=== PATIENT | female | born 1980 | race African-American/Black ===

== ENCOUNTER → 2018-02-27 | Outpatient (CLI) | payer MEDICARE, OTHER ==
[2018-02-27 12:24] LABS: ALT 14 U/L (9-52); AST 22 U/L (14-36)
== END | disposition home or self-care (01) ==
LOC: LABWHC1 10:17
PROVIDERS: ATTEND Family Medicine
DX: J02.9 Acute pharyngitis, unspecified (principal)
CPT/HCPCS: 36415; 84450; 84460; 87070

== ENCOUNTER → 2018-04-03 | Outpatient (CLI) | payer MEDICARE, OTHER ==
--- NOTE | 2018-04-04 07:31 | CT ---
EXAMINATION TYPE: CT brain wo/w con DATE OF EXAM: 04/03/2018 COMPARISON: None INDICATION: Migranes and memory loss DLP: 2250 mGycm, Automated exposure control for dose reduction was used. CONTRAST: None CT of the brain is performed utilizing 3 mm thick sections through the posterior fossa and 3 mm thick sections through the remaining calvarium. Study is performed within 24 hours of arrival to the hosp [facility]. No abnormal hyperdensity is present to suggest an acute intracranial hemorrhage. No mass lesion is evident. No acute infarcts are evident. Ventricles and sulci are appropriate for the patient age. Paranasal sinuses and mastoid air cells within the [id number] are clear. No abnormal enhancement. IMPRESSIONS: 1. Normal pre and postcontrast CT Brain
== END ==
LOC: RADCTMAIN 17:16
PROVIDERS: ATTEND Family Medicine
DX: R41.3 Other amnesia (principal)
CPT/HCPCS: 70470; Q9967

== ENCOUNTER 2018-11-19 01:30 | Emergency (ER) | payer MEDICARE, OTHER ==
[2018-11-19 02:16] VITALS: TEMP 98.4
[2018-11-19 03:43] LABS: Basophils # (A) 0.1 k/uL (0-0.2); Basophils % (A) 1 %; Eosinophils # (A) 0.4 k/uL (0-0.7); Eosinophils % (A) 5 %; HCT 40.2 % (34.0-46.0); HGB 13.2 gm/dL (11.4-16.0); Lymphocytes # (A) 3.6 k/uL (1.0-4.8); Lymphocytes % (A) 51 %; MCH 31.3 pg (25.0-35.0); MCHC 32.7 g/dL (31.0-37.0); MCV 95.6 fL (80.0-100.0); Mean Platelet Volume 7.6; Monocytes # (A) 0.3 k/uL (0-1.0); Monocytes % (A) 5 %; Neutrophils # (A) 2.5 k/uL (1.3-7.7); Neutrophils % (A) 36 %; Platelet Count 242 k/uL (150-450); RDW 13.9 % (11.5-15.5)
[2018-11-19] MEDS ORDERED: KETOROLAC 30 MG/ML 1 ML VIAL IVP STA (03:48)
--- NOTE | 2018-11-19 03:48 | ED ---
Chest Pain HPI - General Chief Complaint: Chest Pain Stated Complaint: sharp pain from chest to lt arm Time Seen by Provider: 11/19/18 03:08 Source: patient Mode of arrival: ambulatory Limitations: physical limitation - History of Present Illness Initial Comments: This patient is a 38-year-old woman who presents to be evaluated for pain along the upper back and into her left arm, the upper portion. The patient states that this really been going on for about 2 weeks. She believes that it may be related to either some lifting that she does at work or moving a piece of heavy furniture. The patient notes that the pain is worse with palpation of the area or with movement of the arm. She did not have any associated anginal symptoms, no diaphoresis, dyspnea, nausea or vomiting, palpitations or syncope. MD Complaint: chest pain Onset/Timin -: week(s) Pain Location: other Pain Radiation: LUE Severity: moderate Quality: tightness, aching Consistency: constant Improves With: nothing Worsens With: movement Treatments Prior to Arrival: none - Related Data Home Medications Medication Instructions Recorded Confirmed DULoxetine HCL [Cymbalta] 20 mg PO DAILY 11/19/18 11/19/18 PARoxetine [Paxil] 10 mg PO DAILY 11/19/18 11/19/18 busPIRone HCl [Buspar] 5 mg PO DAILY 11/19/18 11/19/18 risperiDONE [RisperDAL] 1 tab PO DAILY 11/19/18 11/19/18 Previous Rx's Medication Instructions Recorded Ibuprofen [Motrin] 600 mg PO Q8HR PRN #20 tab 11/19/18 Methocarbamol [Robaxin-750] 750 mg PO TID PRN #30 tablet 11/19/18 Allergies Allergy/AdvReac Type Severity Reaction Status Date / Time bupropion HCl AdvReac Confusion Verified 11/19/18 02:16 [From Wellbutrin] quetiapine fumarate AdvReac Confusion Verified 11/19/18 02:16 [From Seroquel] trazodone AdvReac Confusion Verified 11/19/18 02:16 Review of Systems ROS Statement: Those systems with pertinent positive or pertinent negative responses have been documented in the HPI. ROS Other: All systems not noted in ROS Statement are negative. Constitutional: Denies: fever, chills Respiratory: Denies: cough, dyspnea Cardiovascular: Reports: as per HPI, chest pain. Denies: palpitations, orthopnea, edema, syncope Gastrointestinal: Denies: abdominal pain, nausea, vomiting Musculoskeletal: Denies: back pain Skin: Denies: rash Neurological: Denies: headache, weakness, numbness EKG Findings - EKG Results: EKG: interpreted by JAIDEN VILLARREAL, sinus rhythm (Rate 66 bpm), normal axis, normal QRS, normal ST/T, no acute changes - ME, Pacemaker, Normal: Normal tracing: normal tracing Past Medical History Past Medical History: No Reported History History of Any Multi-Drug Resistant Organisms: None Reported Past Surgical History: Hysterectomy Past Psychological History: Bipolar, Depression Smoking Status: Current every day smoker Past Alcohol Use History: None Reported Past Drug Use History: None Reported General Exam Limitations: physical limitation General appearance: alert, in no apparent distress Head exam: Present: atraumatic, normocephalic Eye exam: Present: normal appearance. Absent: scleral icterus, conjunctival injection ENT exam: Present: normal oropharynx Neck exam: Present: normal inspection Respiratory exam: Present: normal lung sounds bilaterally. Absent: respiratory distress, wheezes, rales, rhonchi, stridor Cardiovascular Exam: Present: regular rate, normal rhythm, normal heart sounds. Absent: systolic murmur, diastolic murmur, rubs, gallop GI/Abdominal exam: Present: soft. Absent: distended, tenderness, guarding, rebound, rigid Extremities exam: Present: normal inspection, normal capillary refill. Absent: pedal edema, calf tenderness Back exam: Present: normal inspection, tenderness (There is tenderness and spasm of the left trapezius muscle), muscle spasm. Absent: CVA tenderness (R), CVA tenderness (L), paraspinal tenderness, vertebral tenderness Neurological exam: Present: alert. Absent: motor sensory deficit Skin exam: Present: warm, dry, intact, normal color. Absent: rash Course Vital Signs 11/19/18 02:09 Temperature 98.4 F Pulse Rate 76 Respiratory 18 Rate Blood Pressure 106/67 O2 Sat by Pulse 100 Oximetry Disposition Clinical Impression: Muscle spasm Disposition: HOME SELF-CARE Condition: Good Instructions (If sedation given, give patient instructions): Muscle Spasm (ED) Prescriptions: Ibuprofen [Motrin] 600 mg PO Q8HR PRN #20 tab PRN Reason: Pain Methocarbamol [Robaxin-750] 750 mg PO TID PRN #30 tablet PRN Reason: pain Is patient prescribed a controlled substance at d/c from ED?: No Referrals: Lexx Morrison MD [Primary Care Provider] - 1-2 days
[2018-11-19 03:51] LABS: ALT 11 U/L (9-52); AST 18 U/L (14-36); African American GFR (CKD) >90 (>60 ml/min/1.73 sqM); Albumin 4.1 g/dL (3.5-5.0); Alkaline Phosphatase 38 U/L (38-126); Anion Gap 9 mmol/L; Blood Urea Nitrogen 18 mg/dL (7-17); Calcium 9.5 mg/dL (8.4-10.2); Carbon Dioxide 22 mmol/L (22-30); Chloride 108 mmol/L (98-107); Glucose 94 mg/dL (74-99); Magnesium 1.9 mg/dL (1.6-2.3); Potassium 4.5 mmol/L (3.5-5.1); Sodium 139 mmol/L (137-145); Total Bilirubin 0.2 mg/dL (0.2-1.3); Total Protein 6.7 g/dL (6.3-8.2)
[2018-11-19 04:43] LABS: INR 0.9 (<1.2); Partial Thromboplastin Time 25.4 sec (22.0-30.0); Prothrombin Time 9.9 sec (9.0-12.0)
--- NOTE | 2018-11-19 05:10 | XR ---
EXAM: XR Chest, 2 Views CLINICAL HISTORY: ITS.REASON XR Reason: Chest Pain TECHNIQUE: Frontal and lateral views of the chest. COMPARISON: No relevant prior studies available. FINDINGS: Lungs: Unremarkable. No consolidation. Pleural space: Unremarkable. No pneumothorax. Heart: Unremarkable. No cardiomegaly. Mediastinum: Unremarkable. Bones/joints: Unremarkable. IMPRESSION: Normal chest x-rays.
[2018-11-19 05:48] VITALS: BP 106/58; PULSE 69; RESP 16
== END 2018-11-19 06:05 | disposition home or self-care (01) ==
LOC: EC 01:30
DX: M62.830 Muscle spasm of back (principal); M62.838 Other muscle spasm; F31.9 Bipolar disorder, unspecified; F17.200 Nicotine dependence, unspecified, uncomplicated; Z88.8 Allergy status to other drugs, medicaments and biological substances; Z79.899 Other long term (current) drug therapy
CPT/HCPCS: 36415; 93005; 80053; 83735; 84484; 85025; 85610; 85730; 71046; 99285; 96374; J1885

== ENCOUNTER 2019-03-13 02:25 | Observation (INO) | payer MEDICARE, OTHER ==
[2019-03-13] MEDS ORDERED: SODIUM CHLORIDE 0.9% 1,000 ML IV STA (03:05)
[2019-03-13] MEDS ORDERED: ONDANSETRON 4 MG/2 ML VIAL IVP STA ×2 (03:05→05:51)
[2019-03-13] MEDS ORDERED: MORPHINE SULFATE 4 MG/ML SYRINGE IV STA (03:05)
--- NOTE | 2019-03-13 03:07 | ED ---
Abdominal Pain HPI - General Chief Complaint: Abdominal Pain Stated Complaint: Vomiting, Dizziness Time Seen by Provider: 03/13/19 02:41 Source: patient, family Mode of arrival: ambulatory Limitations: no limitations - History of Present Illness Initial Comments: This patient is 39-year-old woman who complains of having abdominal pain, nausea and vomiting. She states that the symptoms came on a little after 6 PM. She was concerned that this may be related to some lasagna she had eaten. Coworker had prepared this. Patient denies change in bowel movements or urination. She describes the pain as an aching or burning. Is constant area she has not noted worsening or relieving factors. MD Complaint: abdominal pain Onset/Timin -: hour(s) Location: periumbilical Radiation: none Severity: severe Quality: cramping Consistency: constant Improves With: nothing Worsens With: nothing Associated Symptoms: nausea, vomiting - Related Data Home Medications Medication Instructions Recorded Confirmed DULoxetine HCL [Cymbalta] 20 mg PO DAILY 11/19/18 11/19/18 PARoxetine [Paxil] 10 mg PO DAILY 11/19/18 11/19/18 busPIRone HCl [Buspar] 5 mg PO DAILY 11/19/18 11/19/18 risperiDONE [RisperDAL] 1 tab PO DAILY 11/19/18 11/19/18 Previous Rx's Medication Instructions Recorded Ibuprofen [Motrin] 600 mg PO Q8HR PRN #20 tab 11/19/18 Methocarbamol [Robaxin-750] 750 mg PO TID PRN #30 tablet 11/19/18 Allergies Allergy/AdvReac Type Severity Reaction Status Date / Time bupropion HCl AdvReac Confusion Verified 03/13/19 02:37 [From Wellbutrin] quetiapine fumarate AdvReac Confusion Verified 03/13/19 02:37 [From Seroquel] trazodone AdvReac Confusion Verified 03/13/19 02:37 Review of Systems ROS Statement: Those systems with pertinent positive or pertinent negative responses have been documented in the HPI. ROS Other: All systems not noted in ROS Statement are negative. Constitutional: Reports: chills. Denies: fever Respiratory: Denies: cough, dyspnea Cardiovascular: Denies: chest pain, palpitations, edema Gastrointestinal: Reports: abdominal pain, nausea, vomiting. Denies: diarrhea, constipation, hematemesis, melena, hematochezia Genitourinary: Denies: dysuria, hematuria Musculoskeletal: Denies: back pain Skin: Denies: rash Neurological: Denies: headache, weakness, numbness Past Medical History Past Medical History: No Reported History History of Any Multi-Drug Resistant Organisms: None Reported Past Surgical History: Hysterectomy Past Psychological History: Bipolar, Depression Smoking Status: Current every day smoker Past Alcohol Use History: None Reported Past Drug Use History: None Reported General Exam Limitations: no limitations General appearance: alert, in no apparent distress Head exam: Present: atraumatic, normocephalic Eye exam: Present: normal appearance. Absent: scleral icterus, conjunctival injection ENT exam: Present: normal oropharynx Neck exam: Present: normal inspection Respiratory exam: Present: normal lung sounds bilaterally. Absent: respiratory distress, wheezes, rales, rhonchi, stridor Cardiovascular Exam: Present: regular rate, normal rhythm, normal heart sounds. Absent: systolic murmur, diastolic murmur, rubs, gallop GI/Abdominal exam: Present: soft, tenderness. Absent: distended, guarding, r ebound, rigid, mass Extremities exam: Present: normal inspection, normal capillary refill. Absent: pedal edema, calf tenderness Back exam: Present: normal inspection. Absent: CVA tenderness (R), CVA tenderness (L) Neurological exam: Present: alert Skin exam: Present: warm, dry, intact, normal color. Absent: rash Course Vital Signs 03/13/19 02:32 Temperature 97.8 F Pulse Rate 54 L Respiratory 20 Rate Blood Pressure 150/74 O2 Sat by Pulse 100 Oximetry Medical Decision Making - Lab Data Result diagrams: 03/13/19 03:20 03/13/19 03:20 Lab Results 03/13/19 03/13/19 Range/Units 03:20 03:20 WBC 10.6 (3.8-10.6) k/uL RBC 4.83 (3.80-5.40) m/uL Hgb 15.8 (11.4-16.0) gm/dL Hct 46.4 H (34.0-46.0) % MCV 96.1 (80.0-100.0) fL MCH 32.8 (25.0-35.0) pg MCHC 34.2 (31.0-37.0) g/dL RDW 12.8 (11.5-15.5) % Plt Count 254 (150-450) k/uL Neutrophils % 73 % Lymphocytes % 19 % Monocytes % 3 % Eosinophils % 3 % Basophils % 1 % Neutrophils # 7.7 (1.3-7.7) k/uL Lymphocytes # 2.0 (1.0-4.8) k/uL Monocytes # 0.4 (0-1.0) k/uL Eosinophils # 0.3 (0-0.7) k/uL Basophils # 0.1 (0-0.2) k/uL Sodium 139 (137-145) mmol/L Potassium 4.4 (3.5-5.1) mmol/L Chloride 100 (98-107) mmol/L Carbon Dioxide 23 (22-30) mmol/L Anion Gap 16 mmol/L BUN 12 (7-17) mg/dL Creatinine 0.79 (0.52-1.04) mg/dL Est GFR (CKD-EPI)AfAm >90 (>60 ml/min/1.73 sqM) Est GFR (CKD-EPI)NonAf >90 (>60 ml/min/1.73 sqM) Glucose 135 H (74-99) mg/dL Calcium 10.8 H (8.4-10.2) mg/dL Total Bilirubin 1.0 (0.2-1.3) mg/dL AST 32 (14-36) U/L ALT 17 (9-52) U/L Alkaline Phosphatase 66 (38-126) U/L Total Protein 9.6 H (6.3-8.2) g/dL Albumin 5.5 H (3.5-5.0) g/dL Amylase 161 H (30-110) U/L Lipase 71 (23-300) U/L Disposition Clinical Impression: Abdominal pain Disposition: ADMITTED IP TO THIS HOSP Condition: Fair Instructions (If sedation given, give patient instructions): Abdominal Pain (ED) Is patient prescribed a controlled substance at d/c from ED?: No Referrals: Lexx Morrison MD [Primary Care Provider] - 1-2 days
[2019-03-13 03:31] LABS: Basophils # (A) 0.1 k/uL (0-0.2); Basophils % (A) 1 %; Eosinophils # (A) 0.3 k/uL (0-0.7); Eosinophils % (A) 3 %; HCT 46.4 % (34.0-46.0); HGB 15.8 gm/dL (11.4-16.0); Lymphocytes % (A) 19 %; MCH 32.8 pg (25.0-35.0); MCHC 34.2 g/dL (31.0-37.0); MCV 96.1 fL (80.0-100.0); Mean Platelet Volume 7.5; Monocytes # (A) 0.4 k/uL (0-1.0); Monocytes % (A) 3 %; Neutrophils # (A) 7.7 k/uL (1.3-7.7); Neutrophils % (A) 73 %; Platelet Count 254 k/uL (150-450); RBC 4.83 m/uL (3.80-5.40); RDW 12.8 % (11.5-15.5); WBC 10.6 k/uL (3.8-10.6)
[2019-03-13 03:41] LABS: ALT 17 U/L (9-52); AST 32 U/L (14-36); African American GFR (CKD) >90 (>60 ml/min/1.73 sqM); Albumin 5.5 g/dL (3.5-5.0); Alkaline Phosphatase 66 U/L (38-126); Amylase 161 U/L (30-110); Anion Gap 16 mmol/L; Blood Urea Nitrogen 12 mg/dL (7-17); Calcium 10.8 mg/dL (8.4-10.2); Carbon Dioxide 23 mmol/L (22-30); Chloride 100 mmol/L (98-107); Glucose 135 mg/dL (74-99); Potassium 4.4 mmol/L (3.5-5.1); Sodium 139 mmol/L (137-145); Total Protein 9.6 g/dL (6.3-8.2)
--- NOTE | 2019-03-13 03:58 | CT ---
EXAMINATION TYPE: CT abdomen pelvis wo con DATE OF EXAM: 03/13/2019 COMPARISON: None HISTORY: vomiting CT DLP: 489.4 mGycm Automated exposure control for dose reduction was used. TECHNIQUE: Helical acquisition of images was performed from the lung bases through the pelvis. FINDINGS: Lung bases are clear. There is no pleural effusion. Heart size is normal. There is no pericardial eff usion. There is small hiatal hernia. Liver shows no focal defect. There are multiple calcified gallstones. Bile ducts are not dilated. Spl een is intact. There is no evidence of pancreatic mass. There is no adrenal mass. Kidneys have normal size. There is no hydronephrosis. There is no sign of r etroperitoneal adenopathy. Bladder distends smoothly. There is no inguinal hernia. Uterus is not seen . There is small amount of free fluid in the pelvis. There is no mesenteric edema. There is no sign of a bowel obstruction. There is no sign of thickened appendix. Appendix is partly spleen appears normal. IMPRESSION: THERE IS TINY AMOUNT OF FLUID IN THE PELVIS. NO EVIDENCE OF A BOWEL OBSTRUCTION. CHOLELITHIASIS.
[2019-03-13] MEDS ORDERED: HYDROmorphone 0.5 MG/0.5 ML SYRINGE IVP STA (05:51)
[2019-03-13] MEDS ORDERED: ONDANSETRON 4 MG/2 ML VIAL IVP PRN (06:57)
[2019-03-13] MEDS ORDERED: NALOXONE 0.4 MG/ML 1 ML VIAL IV PRN (06:57)
[2019-03-13] MEDS ORDERED: HYDROmorphone 1 MG/ML 1 ML SYRINGE IVP PRN (06:57)
[2019-03-13] MEDS: SODIUM CHLORIDE 0.9% 1,000 ML IV SCH ×3 (07:14→23:11)
[2019-03-13 08:04] LABS: Appearance,Urine Cloudy (Clear); Bilirubin,Urine Negative (Negative); Blood,Urine Trace (Negative); Color,Urine Yellow; Glucose,Urine (UA) Negative (Negative); Ketones,Urine 4+ (Negative); Leukocyte Esterase,Urine Small (Negative); Mucus,Urine Occasional /hpf; Nitrite,Urine Negative (Negative); Protein,Urine 1+ (Negative); RBC,Urine 6 /hpf (0-5); Specific Gravity,Urine 1.022 (1.001-1.035); Squamous Epithelial Cell,Urine 11 /hpf (0-4); Urobilinogen,Urine <2.0 mg/dL (<2.0); WBC,Urine 12 /hpf (0-5)
[2019-03-13] MEDS ORDERED: IV FLUID CONTINUATION 1,000 ML IV ONE (09:33)
[2019-03-13 10:14] VITALS: BMI 24.9
--- NOTE | 2019-03-13 10:19 | P.GSHP ---
History of Present Illness H&P Date: 03/13/19 Chief Complaint: Right upper quadrant pain, nausea This a 39-year-old female who presents to the emergency complaints of abdominal pain and nausea. Her obstruction is evidence of cholelithiasis. Patient is tender right quadrant. Past Medical History Past Medical History: No Reported History Additional Past Medical History / Comment(s): Large tonsills-difficulty swallowing at times, elevated heart rate, bilateral feet have fungus/ingrown toenails and cramps-pain with walking at times, R eye unclear vision since accidental nail glue went into that eye, UTI. History of Any Multi-Drug Resistant Organisms: None Reported Past Surgical History: Hernia Repair, Hysterectomy, Tubal Ligation Additional Past Surgical History / Comment(s): Ventral hernia repair, ectopic /laparoscopic surgery to laparotomy, L salpingostomy for drainage of a cyst. Past Anesthesia/Blood Transfusion Reactions: Motion Sickness Smoking Status: Light tobacco smoker - Past Family History Mother Family Medical History: Diabetes Mellitus, Pneumonia Additional Family Medical History / Comment(s): Mother of pneum onia/diabetes. Father Family Medical History: No Reported History Additional Family Medical History / Comment(s): Father is healthy Medications and Allergies Home Medications Medication Instructions Recorded Confirmed Type DULoxetine HCL [Cymbalta] 20 mg PO DAILY 11/19/18 03/13/19 History PARoxetine [Paxil] 10 mg PO DAILY 11/19/18 03/13/19 History busPIRone HCl [Buspar] 5 mg PO DAILY 11/19/18 03/13/19 History risperiDONE [RisperDAL] 0.25 mg PO DAILY 11/19/18 03/13/19 History Allergies Allergy/AdvReac Type Severity Reaction Status Date / Time bupropion HCl AdvReac Confusion Verified 03/13/19 08:26 [From Wellbutrin] quetiapine fumarate AdvReac Confusion Verified 03/13/19 08:26 [From Seroquel] trazodone AdvReac Confusion Verified 03/13/19 08:26 Surgical - Exam Vital Signs Temp Pulse Resp BP Pulse Ox 97.8 F 54 L 20 150/74 100 03/13/19 02:32 03/13/19 02:32 03/13/19 02:32 03/13/19 02:32 03/13/19 02:32 - General well developed, well nourished, no distress - Eyes PERRL - ENT normal pinna - Neck no masses - Respiratory normal expansion - Cardiovascular Rhythm: regular - Abdomen Abdomen: soft, non tender Results - Labs 03/13/19 03:20 03/13/19 03:20 Abnormal Lab Results - Last 24 Hours (Table) 03/13/19 03/13/19 03/13/19 Range/Units 03:20 03:20 07:44 Hct 46.4 H (34.0-46.0) % Glucose 135 H (74-99) mg/dL Calcium 10.8 H (8.4-10.2) mg/dL Total Protein 9.6 H (6.3-8.2) g/dL Albumin 5.5 H (3.5-5.0) g/dL Amylase 161 H (30-110) U/L Urine Appearance Cloudy H (Clear) Urine Protein 1+ H (Negative) Urine Ketones 4+ H (Negative) Urine Blood Trace H (Negative) Ur Leukocyte Esterase Small H (Negative) Urine RBC 6 H (0-5) /hpf Urine WBC 12 H (0-5) /hpf Ur Squamous Epith Cells 11 H (0-4) /hpf Urine Mucus Occasional H (None) /hpf Diabetes panel 03/13/19 Range/Units 03:20 Sodium 139 (137-145) mmol/L Potassium 4.4 (3.5-5.1) mmol/L Chloride 100 (98-107) mmol/L Carbon Dioxide 23 (22-30) mmol/L BUN 12 (7-17) mg/dL Creatinine 0.79 (0.52-1.04) mg/dL Glucose 135 H (74-99) mg/dL Calcium 10.8 H (8.4-10.2) mg/dL AST 32 (14-36) U/L ALT 17 (9-52) U/L Alkaline Phosphatase 66 (38-126) U/L Total Protein 9.6 H (6.3-8.2) g/dL Albumin 5.5 H (3.5-5.0) g/dL Calcium panel 03/13/19 Range/Units 03:20 Calcium 10.8 H (8.4-10.2) mg/dL Albumin 5.5 H (3.5-5.0) g/dL Pituitary panel 03/13/19 Range/Units 03:20 Sodium 139 (137-145) mmol/L Potassium 4.4 (3.5-5.1) mmol/L Chloride 100 (98-107) mmol/L Carbon Dioxide 23 (22-30) mmol/L BUN 12 (7-17) mg/dL Creatinine 0.79 (0.52-1.04) mg/dL Glucose 135 H (74-99) mg/dL Calcium 10.8 H (8.4-10.2) mg/dL Adrenal panel 03/13/19 Range/Units 03:20 Sodium 139 (137-145) mmol/L Potassium 4.4 (3.5-5.1) mmol/L Chloride 100 (98-107) mmol/L Carbon Dioxide 23 (22-30) mmol/L BUN 12 (7-17) mg/dL Creatinine 0.79 (0.52-1.04) mg/dL Glucose 135 H (74-99) mg/dL Calcium 10.8 H (8.4-10.2) mg/dL Total Bilirubin 1.0 (0.2-1.3) mg/dL AST 32 (14-36) U/L ALT 17 (9-52) U/L Alkaline Phosphatase 66 (38-126) U/L Total Protein 9.6 H (6.3-8.2) g/dL Albumin 5.5 H (3.5-5.0) g/dL - Imaging CT scan - abdomen: report reviewed (Cholelithiasis) Assessment and Plan Assessment: Quadrant pain Cholelithiasis We'll perform laparoscopic cholecystectomy
[2019-03-13] MEDS ORDERED: BUPIVACAINE (PF) 0.25% 30 ML VIAL SQ ONE ×2 (10:22→11:01)
[2019-03-13] MEDS ORDERED: DEXAMETHASONE SOD PHOS (MDV) 100 MG/10 ML VIAL ONE (10:39)
[2019-03-13] MEDS ORDERED: PROPOFOL 10 MG/ML 20 ML VIAL IV ONE (10:39)
[2019-03-13] MEDS ORDERED: GLYCOPYRROLATE 0.2 MG/ML 2 ML VIAL ONE (10:39)
[2019-03-13] MEDS ORDERED: MIDAZOLAM 2 MG/2 ML VIAL ONE (10:39)
[2019-03-13] MEDS ORDERED: NEOSTIGMINE 1 MG/ML 10 ML VIAL ONE (10:39)
[2019-03-13] MEDS ORDERED: METOCLOPRAMIDE 5 MG/ML 2 ML VIAL ONE (10:39)
[2019-03-13] MEDS ORDERED: LIDOCAINE 1% INJ 10MG/ML (20 ML MDV) ONE (10:39)
[2019-03-13] MEDS ORDERED: fentaNYL (PF) 50 MCG/ML 2 ML AMP ONE (10:39)
[2019-03-13] MEDS ORDERED: ROCURONIUM BROMIDE 10 MG/ML 10 ML VIAL IV ONE (10:39)
[2019-03-13] MEDS ORDERED: SODIUM CHLORIDE 0.9% 50 ML with ceFAZolin 1,000 MG IV ONE ×2 (10:39)
[2019-03-13] MEDS ORDERED: HYDROmorphone (PF) 1 MG/ML ONE (10:39)
[2019-03-13] MEDS ORDERED: ONDANSETRON 4 MG/2 ML VIAL ONE (10:39)
[2019-03-13] MEDS ORDERED: SUCCINYLCHOLINE CHLORIDE 100 MG/5 ML SYR IV ONE (10:39)
--- NOTE | 2019-03-13 11:39 | P.OP ---
Date of Procedure: 03/13/19 Preoperative Diagnosis: Cholecystitis Cholelithiasis Postoperative Diagnosis: Cholecystitis Cholelithiasis Procedure(s) Performed: Laparoscopic: Cholecystectomy Anesthesia: MAC Surgeon: Zelalem Desouza Estimated Blood Loss (ml): 5 Pathology: other (Gallbladder) Condition: stable Disposition: PACU Description of Procedure: The patient was placed on the operating table. The patient received a general endotracheal tube anesthesia. The patients abdomen was prepped and draped in the usual sterile fashion. Through an infraumbilical stab incision, the fascia of the anterior abdominal wall was grasped with a pair of Kochers and then the Veress needle was placed in the peritoneal cavity. Position of the Veress needle was confirmed with positive drop test. The abdomen was then insufflated. After adequate insufflation, the 10 mm trocar was placed in the peritoneal cavity. Following this the laparoscope was placed in the peritoneal cavity. The patient was placed in the head-up, right side up position and then a 5 mm trocar was placed in the right lateral and right subcostal position under direct visualization. A 8 mm trocar was placed in the epigastric position. The gallbladder was grasped in the fundus and infundibulum. Traction on the gallbladder was placed in the lateral and the cephalad positions. The triangle of Calot was visualized.. The cystic duct was bluntly dissected until the union of the cystic duct and common bile duct wa s seen. A critical view of safety was achieved. The cystic duct was then divided and sealed with the Harmonic scissors. A PDS Endoloop was then placed throughout the cystic duct stump. The cystic artery divided and sealed with the Harmonic scissors. The gallbladder was then removed from the liver bed using Harmonic scissors. The gallbladder was then extracted through the epigastric port site. Operative field was checked for any bleeding spots and Harmonic scissors was used to coagulate the liver bed. The abdomen was irrigated. The trocars were removed. The skin was closed using interrupted 3-0 Vicryl suture. Dermabond dressing were applied. The patient tolerated the procedure well.
[2019-03-13] MEDS ORDERED: HYDROmorphone 1 MG/ML 1 ML SYRINGE IVP ONE ×2 (11:57→12:03)
[2019-03-13] MEDS: FAMOTIDINE 20 MG/2 ML VIAL IV SCH ×2 (12:20→20:29)
[2019-03-13] MEDS: HYDROmorphone 0.5 MG/0.5 ML SYRINGE IVP PRN ×2 (17:55→23:11)
--- NOTE | 2019-03-13 20:30 | CONS ---
CONSULTATION CHIEF COMPLAINT: Abdominal pain. HISTORY OF PRESENT ILLNESS: This lady was admitted through the night for abdominal pain and has gone to the operating room. Her history and physical exam will be deferred for the time being until she can be seen. MMODL / IJN: [id number] /
[2019-03-13 23:22] VITALS: RESP 16
[2019-03-14] MEDS: HYDROmorphone 0.5 MG/0.5 ML SYRINGE IVP PRN (04:15)
[2019-03-14] MEDS: FAMOTIDINE 20 MG/2 ML VIAL IV SCH (08:18)
[2019-03-14 08:20] VITALS: BP 102/61; PULSE 67; TEMP 98.2
[2019-03-14] MEDS ORDERED: busPIRone HCl 5 MG TAB PO SCH (09:00)
[2019-03-14] MEDS ORDERED: risperiDONE 0.25 MG TAB PO SCH (09:00)
[2019-03-14] MEDS ORDERED: PARoxetine 10 MG TAB PO SCH (09:00)
[2019-03-14] MEDS ORDERED: DULoxetine HCL 20 MG CAPSULE.DR PO SCH (09:00)
--- NOTE | 2019-03-14 13:43 | P.DS ---
Providers Date of admission: 03/13/19 06:57 Expected date of discharge: 03/14/19 Attending physician: Zelalem Desouza Primary care physician: Lexx Morrison - Discharge Diagnosis(es) (1) Gallstones Status: Acute (2) Cholecystitis Status: Acute Hospital Course: CHIEF COMPLAINT: Acute cholecystitis HISTORY OF PRESENT ILLNESS: The patient is a 39-year-old female postop day 1 status post cholecystectomy for acute cholecystitis. She came in with symptomatic gallstones. Clinically stable this morning. ROS: No reports of nausea and vomiting. No bowel movements. No fevers or chills. No new chest pain. No productive sputum PHYSICAL EXAM: VITAL SIGNS: Reviewed CONSTITUTIONAL: Well developed and in no acute distress. EYES: Conjuctivae without sclera icterus. Extraocular movements grossly intact. HEAD, EARS, NOSE, THROAT: Moist buccal mucosa. Head is atraumatic, normocephalic. Hears conversational speech. No nasal drainage. NECK: Supple. No thyroidomegaly. RESPIRATORY: Non-labored respirations and equal bilateral excursions. CARDIOVASCULAR: Palpable 2+ radial pulses. Regular rate. Regular rhythm. ABDOMEN: Incisions clean dry and intact. Soft. No peritonitis. MUSCULOSKELETAL: No gross deformity of the lower extremities noted. No clubbing. No cyanosis. SKIN: Good skin turgor. Well perfused. NEUROLOGIC: Cranial nerves I through XII grossly intact. No focal or lateralizing signs. PSYCH: Appropriate affect. Alert and oriented to person, place and time. CLINCAL LABS: White blood cell count normal STUDIES: CT scan reviewed along side with her showing at 6+ large >2 cm gallstones. ASSESSMENT: 1. Acute cholecystitis PLAN: 1. Discharge instructions reviewed. 2. Follow up with surgeon in 1 week. Patient Condition at Discharge: Stable Plan - Discharge Summary Discharge Rx Participant: No New Discharge Prescriptions: New Hydrocodone/Acetaminophen [[place] 5-325] 1 tab PO Q6HR PRN 3 Days #12 tab PRN Reason: Pain No Action risperiDONE [RisperDAL] 0.25 mg PO DAILY busPIRone HCl [Buspar] 5 mg PO DAILY DULoxetine HCL [Cymbalta] 20 mg PO DAILY PARoxetine [Paxil] 10 mg PO DAILY Discharge Medication List DULoxetine HCL [Cymbalta] 20 mg PO DAILY 11/19/18 [History] PARoxetine [Paxil] 10 mg PO DAILY 11/19/18 [History] busPIRone HCl [Buspar] 5 mg PO DAILY 11/19/18 [History] risperiDONE [RisperDAL] 0.25 mg PO DAILY 11/19/18 [History] Hydrocodone/Acetaminophen [[place] 5-325] 1 tab PO Q6HR PRN 3 Days #12 tab 03/13/19 [Rx] Follow up Appointment(s)/Referral(s): Lexx Morrison MD [Primary Care Provider] - 1-2 days Zelalem Desouza MD [STAFF PHYSICIAN] - 1 Week Patient Instructions/Handouts: Abdominal Pain (ED) Activity/Diet/Wound Care/Special Instructions: No driving while taking [place] No lifting over 10 pounds You may shower. No soaking or tub baths Very light activity until you are reevaluated at your follow up appointment with your surgeon Discharge Disposition: HOME SELF-CARE
--- NOTE | 2019-03-14 17:04 | PN ---
PROGRESS NOTE DATE OF SERVICE: 03/14/2019 CHIEF COMPLAINT: Status post cholecystectomy. HISTORY OF PRESENT ILLNESS: This lady is doing well, not having any significant discomfort, shortness of breath, etc. She expects to go home today. PHYSICAL EXAM: Chest is clear. Cardiac exam is normal. Abdomen is soft, nontender and incisions are dry. IMPRESSION: 1. Status post cholecystectomy. 2. Depression. PLAN: Home today. MMODL / IJN: [id number] /
[2019-03-14] MEDS ORDERED: FAMOTIDINE 20 MG TAB PO SCH (21:00)
== END 2019-03-14 14:03 | disposition home or self-care (01) ==
LOC: EC 02:25 → 1SOBS 06:57
PROVIDERS: ADMIT Surgery; ATTEND Surgery
DX: K80.13 Calculus of gallbladder with acute and chronic cholecystitis with obstruction (principal); F17.210 Nicotine dependence, cigarettes, uncomplicated; F31.9 Bipolar disorder, unspecified; K21.9 Gastro-esophageal reflux disease without esophagitis; Z87.440 Personal history of urinary (tract) infections; Z79.899 Other long term (current) drug therapy; Z88.8 Allergy status to other drugs, medicaments and biological substances; Z83.3 Family history of diabetes mellitus; Z83.6 Family history of other diseases of the respiratory system
CPT/HCPCS: 47562; 96376; 96361; 96374; 96375; 99285; 36415; 81025 ×2; 88304; 80053; 82150; 83690; 85025; 81001; 74176; G0378 ×2; J2250; J2270; J2710; J2765; J2405; J0690; J2001; J3010; J1170 ×3; J1100; J0330; J2704

== ENCOUNTER 2019-03-15 01:10 | Observation (INO) | payer MEDICARE, OTHER ==
[2019-03-15] MEDS ORDERED: MORPHINE SULFATE 4 MG/ML SYRINGE IVP STA (01:22)
[2019-03-15] MEDS ORDERED: SODIUM CHLORIDE 0.9% 1,000 ML IV STA (01:36)
[2019-03-15] MEDS ORDERED: MORPHINE SULFATE 4 MG/ML SYRINGE IV STA (01:42)
--- NOTE | 2019-03-15 01:47 | ED ---
General Adult HPI - General Chief complaint: Abdominal Pain Stated complaint: Abd pain,post op complications Time Seen by Provider: 03/15/19 01:13 Source: patient, EMS Mode of arrival: EMS - History of Present Illness Initial comments: Dictation was produced using invi dictation software. please excuse any grammatical, word or spelling errors. Chief Complaint: 39-year-old female presents with abdominal pain. She is postop day 2 status post cholecystectomy. History of Present Illness: 39-year-old female she presents with abdominal pain. Patient states her pain is diffuse. 2 days ago patient had cholecystectomy performed for symptomatic cholelithiasis. Her procedure was performed [address] Davis. Patient states that she was discharged in stable condition. One hour after being at home she began experiencing worsening abdominal pain. She tried to handle the pain at home. She did not fill her prescriptions for [place]. It has any fever, chills or night sweats. She does feel very nauseous patient is been spitting up. Denies any diarrhea. The ROS documented in this emergency department record has been reviewed and c onfirmed by me. Those systems with pertinent positive or negative responses have been documented in the HPI. All other systems are other negative and/or noncontributory. PHYSICAL EXAM: General Impression: Alert and oriented x3, acute distress secondary to pain and nausea HEENT: Normocephalic atraumatic, extra-ocular movements intact, pupils equal and reactive to light bilaterally, mucous membranes moist. Cardiovascular: Heart regular rate and rhythm, S1&S2 audible, no murmurs, rubs or gallops Chest: Lungs clear to auscultation bilaterally, no rhonchi, no wheeze, no rales Abdomen: His abdominal tenderness to palpation, voluntary guarding Musculoskeletal: Pulses present and equal in all extremities, no peripheral edema Motor: no focal deficits noted Neurological: CN II-XII grossly intact, no focal motor or sensory deficits noted Skin: Intact with no visualized rashes ED course 39-year-old female presents with abdominal pain. Patient is 2 days postop from elective cholecystectomy. Vital signs upon arrival are within acceptable limits. Patient appears acutely ill. Laboratory evaluation obtained. Leukocytosis of 13.6, coag panel unremarkable. Metabolic panel does not show any transaminitis. No bilirubinemia. Essentially metabolic panel is unremarkable. CT of the abdomen pelvis shows moderate free fluid measuring up to 3.5 cm in thickness concerning for bile leak versus enteric leak. Patient given multiple rounds of IV analgesics. She is also given antiemetics. Discussed patient case in detail with Dr. Brewer who was on-call for Dr. Desouza. She requests that patient be started on antibiotics and for HIDA scan to be ordered. Dr. Moreno requested patient be admitted to Dr. Desouza with medicine on consult. HIDA scan ordered. - Related Data Home Medications Medication Instructions Recorded Confirmed DULoxetine HCL [Cymbalta] 20 mg PO DAILY 11/19/18 03/13/19 PARoxetine [Paxil] 10 mg PO DAILY 11/19/18 03/13/19 busPIRone HCl [Buspar] 5 mg PO DAILY 11/19/18 03/13/19 risperiDONE [RisperDAL] 0.25 mg PO DAILY 11/19/18 03/13/19 Previous Rx's Medication Instructions Recorded Hydrocodone/Acetaminophen [[place] 1 tab PO Q6HR PRN 3 Days #12 tab 03/13/19 5-325] Allergies Allergy/AdvReac Type Severity Reaction Status Date / Time bupropion HCl AdvReac Confusion Verified 03/13/19 08:26 [From Wellbutrin] quetiapine fumarate AdvReac Confusion Verified 03/13/19 08:26 [From Seroquel] trazodone AdvReac Confusion Verified 03/13/19 08:26 Review of Systems ROS Statement: Those systems with pertinent positive or pertinent negative responses have been documented in the HPI. ROS Other: All systems not noted in ROS Statement are negative. Past Medical History Past Medical History: No Reported History Additional Past Medical History / Comment(s): Large tonsills-difficulty swal lowing at times, elevated heart rate, bilateral feet have fungus/ingrown toenails and cramps-pain with walking at times, R eye unclear vision since accidental nail glue went into that eye, UTI. History of Any Multi-Drug Resistant Organisms: None Reported Past Surgical History: Hernia Repair, Hysterectomy, Tubal Ligation Additional Past Surgical History / Comment(s): Ventral hernia repair, ectopic /laparoscopic surgery to laparotomy, L salpingostomy for drainage of a cyst. Past Anesthesia/Blood Transfusion Reactions: Motion Sickness Past Psychological History: Bipolar, Depression Smoking Status: Light tobacco smoker Past Alcohol Use History: None Reported Past Drug Use History: None Reported - Past Family History Mother Family Medical History: Diabetes Mellitus, Pneumonia Additional Family Medical History / Comment(s): Mother of pneumonia/diabetes. Father Family Medical History: No Reported History Additional Family Medical History / Comment(s): Father is healthy Course Vital Signs 03/15/19 01:17 Temperature 98.2 F Pulse Rate 59 L Respiratory 18 Rate Blood Pressure 175/99 O2 Sat by Pulse 100 Oximetry Medical Decision Making - Lab Data Result diagrams: 03/15/19 01:57 03/15/19 01:57 Lab Results 03/15/19 03/15/19 03/15/19 Range/Units 01:57 01:57 01:57 WBC 13.6 H (3.8-10.6) k/uL RBC 4.37 (3.80-5.40) m/uL Hgb 13.8 (11.4-16.0) gm/dL Hct 42.1 (34.0-46.0) % MCV 96.2 (80.0-100.0) fL MCH 31.5 (25.0-35.0) pg MCHC 32.7 (31.0-37.0) g/dL RDW 12.9 (11.5-15.5) % Plt Count 244 (150-450) k/uL Neutrophils % 77 % Lymphocytes % 17 % Monocytes % 3 % Eosinophils % 2 % Basophils % 1 % Neutrophils # 10.5 H (1.3-7.7) k/uL Lymphocytes # 2.3 (1.0-4.8) k/uL Monocytes # 0.4 (0-1.0) k/uL Eosinophils # 0.2 (0-0.7) k/uL Basophils # 0.1 (0-0.2) k/uL PT 9.6 (9.0-12.0) sec INR 0.9 (<1.2) APTT 23.6 (22.0-30.0) sec Sodium 138 (137-145) mmol/L Potassium 3.8 (3.5-5.1) mmol/L Chloride 103 (98-107) mmol/L Carbon Dioxide 22 (22-30) mmol/L Anion Gap 13 mmol/L BUN 11 (7-17) mg/dL Creatinine 0.74 (0.52-1.04) mg/dL Est GFR (CKD-EPI)AfAm >90 (>60 ml/min/1.73 sqM) Est GFR (CKD-EPI)NonAf >90 (>60 ml/min/1.73 sqM) Glucose 112 H (74-99) mg/dL Calcium 9.4 (8.4-10.2) mg/dL Total Bilirubin 0.3 (0.2-1.3) mg/dL AST 54 H (14-36) U/L ALT 48 (9-52) U/L Alkaline Phosphatase 58 (38-126) U/L Total Protein 7.2 (6.3-8.2) g/dL Albumin 4.2 (3.5-5.0) g/dL Lipase 73 (23-300) U/L Disposition Clinical Impression: Abdominal pain Disposition: ADMITTED IP TO THIS HOSP Condition: Fair Referrals: Lexx Morrison MD [Primary Care Provider] - 1-2 days Decision Time: 02:49
[2019-03-15 02:21] LABS: Basophils # (A) 0.1 k/uL (0-0.2); Basophils % (A) 1 %; Eosinophils # (A) 0.2 k/uL (0-0.7); Eosinophils % (A) 2 %; HCT 42.1 % (34.0-46.0); HGB 13.8 gm/dL (11.4-16.0); Lymphocytes # (A) 2.3 k/uL (1.0-4.8); Lymphocytes % (A) 17 %; MCH 31.5 pg (25.0-35.0); MCHC 32.7 g/dL (31.0-37.0); MCV 96.2 fL (80.0-100.0); Mean Platelet Volume 7.5; Monocytes # (A) 0.4 k/uL (0-1.0); Monocytes % (A) 3 %; Neutrophils # (A) 10.5 k/uL (1.3-7.7); Neutrophils % (A) 77 %; Platelet Count 244 k/uL (150-450); RBC 4.37 m/uL (3.80-5.40); RDW 12.9 % (11.5-15.5); WBC 13.6 k/uL (3.8-10.6)
[2019-03-15 02:28] LABS: INR 0.9 (<1.2); Partial Thromboplastin Time 23.6 sec (22.0-30.0); Prothrombin Time 9.6 sec (9.0-12.0)
[2019-03-15 02:30] LABS: ALT 48 U/L (9-52); AST 54 U/L (14-36); African American GFR (CKD) >90 (>60 ml/min/1.73 sqM); Albumin 4.2 g/dL (3.5-5.0); Alkaline Phosphatase 58 U/L (38-126); Anion Gap 13 mmol/L; Blood Urea Nitrogen 11 mg/dL (7-17); Calcium 9.4 mg/dL (8.4-10.2); Carbon Dioxide 22 mmol/L (22-30); Chloride 103 mmol/L (98-107); Glucose 112 mg/dL (74-99); Potassium 3.8 mmol/L (3.5-5.1); Sodium 138 mmol/L (137-145); Total Bilirubin 0.3 mg/dL (0.2-1.3); Total Protein 7.2 g/dL (6.3-8.2)
--- NOTE | 2019-03-15 02:35 | CT ---
EXAMINATION TYPE: CT abdomen pelvis w con DATE OF EXAM: 03/15/2019 COMPARISON: 03/13/2019 HISTORY: abd pain CT DLP: 765.8 mGycm Automated exposure control for dose reduction was used. TECHNIQUE: Helical acquisition of images was performed from the lung bases through the pelvis. CONTRAST: Performed without Oral Contrast and with IV Contrast, patient injected with 100 mL of Isovue 300. FINDINGS: There is mild subsegmental atelectasis at the lung bases. Heart size is normal. There is no pericardi al effusion. There is no pleural effusion. There is mild pneumoperitoneum consistent with recent chol ecystectomy. There is soft tissue subcutaneous air also consistent with surgery. Liver shows no focal defect. There are clips from cholecystectomy. The bile ducts are not dilated. There is no evidence o f pancreatic mass. Spleen is intact. Stomach is intact. There is no adrenal mass. Kidneys show satisfactory contrast opacification. There is no hydronephrosi s. There is no retroperitoneal adenopathy. Ureters are not dilated. There is mild to moderate free fluid in the pelvis. There is no mesenteric edema. There is no evidence of a bowel obstruction. Bladder di stends smoothly. Lumbar spine is intact. Bony pelvis is intact. IMPRESSION: THERE IS MILD SUBSEGMENTAL ATELECTASIS AT THE LUNG BASES. POSTOPERATIVE MILD PNEUMOPERITONEUM. THERE IS MILD TO MODERATE FREE FLUID IN THE PELVIS THAT MEASURES UP TO 3.5 CM IN THICKNESS. FLUID HAS LOW ATTENUATION AND I WOULD CONSIDER POSSIBILITIES OF A BILE LEAK OR ENTERIC LEAK.
[2019-03-15] MEDS ORDERED: ONDANSETRON 4 MG/2 ML VIAL IVP STA (02:41)
[2019-03-15] MEDS ORDERED: HYDROmorphone 1 MG/ML 1 ML SYRINGE IVP PRN (02:43)
[2019-03-15] MEDS ORDERED: MORPHINE SULFATE 4 MG/ML SYRINGE IV PRN (02:43)
[2019-03-15] MEDS ORDERED: NALOXONE 0.4 MG/ML 1 ML VIAL IV PRN (02:43)
[2019-03-15] MEDS ORDERED: ONDANSETRON 4 MG/2 ML VIAL IVP PRN (02:43)
[2019-03-15] MEDS ORDERED: ACETAMINOPHEN TAB 325 MG TAB PO PRN (02:43)
[2019-03-15] MEDS ORDERED: SODIUM CHLORIDE 0.9% 1,000 ML IV SCH (02:45)
[2019-03-15] MEDS ORDERED: HYDROmorphone 1 MG/ML 1 ML SYRINGE IVP STA (02:47)
[2019-03-15 04:03] VITALS: BMI 24.0
[2019-03-15] MEDS: PIPERACILLIN-TAZOBACTAM 3.375 GM in SODIUM CHLORIDE 0.9% 100 ML IVPB SCH ×2 (04:07→09:22)
[2019-03-15 06:07] VITALS: BP 157/93; PULSE 62; RESP 22; TEMP 98.4
--- NOTE | 2019-03-15 08:29 | NM ---
EXAMINATION TYPE: NM hepatobiliary wo EF DATE OF EXAM: 03/15/2019 COMPARISON: None. HISTORY: Abdominal pain TECHNIQUE: After the intravenous administration of 4.89 mCi Tc 99m Mebrofenin hepatobiliary scintigra phy is performed. Immediate images post injection. FINDINGS: There is absence of filling of the gallbladder in keeping with a previous cholecystectomy. There is activity seen within the small bowel. Rounded area of activity into the biliary confluence i nitially increases but eventually decreases in activity as activity moves within the small bowel. A d efinite bile leak is not identified. IMPRESSION: I DO NOT SEE CONVINCING EVIDENCE OF A BILE LEAK AT THIS TIME.
--- NOTE | 2019-03-15 11:07 | P.GSHP ---
History of Present Illness H&P Date: 03/15/19 Discussion with nursing, patient left AMA. She did not pick out hand her prescriptions from her discharge yesterday hence prompting her return to the ER. Patient left without being seen. Past Medical History Past Medical History: No Reported History Additional Past Medical History / Comment(s): Large tonsills-difficulty swallowing at times, elevated heart rate, bilateral feet have fungus/ingrown toenails and cramps-pain with walking at times, R eye unclear vision since accidental nail glue went into that eye, UTI. History of Any Multi-Drug Resistant Organisms: None Reported Past Surgical History: Hernia Repair, Hysterectomy, Tubal Ligation Additional Past Surgical History / Comment(s): Ventral hernia repair, ectopic /laparoscopic surgery to laparotomy, L salpingostomy for drainage of a cyst. Past Anesthesia/Blood Transfusion Reactions: Motion Sickness Past Psychological History: Bipolar, Depression Additional Psychological History / Comment(s): pt refusing to answer some admission questions fully. Pt is very short with her answers and refusing care. Smoking Status: Light tobacco smoker Past Alcohol Use History: None Reported Additional Past Alcohol Use History / Comment(s): Pt started smoking in 1998 and smoked lightly-1 pack per 3 days, she has cut down recently to 1 cigarette a da y. Past Drug Use History: None Reported Additional Drug Use History / Comment(s): Occasional marijuana-last time 01/02/19 - Past Family History Mother Family Medical History: Diabetes Mellitus, Pneumonia Additional Family Medical History / Comment(s): Mother of pneu monia/diabetes. Father Family Medical History: No Reported History Additional Family Medical History / Comment(s): Father is healthy Medications and Allergies Home Medications Medication Instructions Recorded Confirmed Type DULoxetine HCL [Cymbalta] 20 mg PO DAILY 11/19/18 03/15/19 History PARoxetine [Paxil] 10 mg PO DAILY 11/19/18 03/15/19 History busPIRone HCl [Buspar] 5 mg PO DAILY 11/19/18 03/15/19 History risperiDONE [RisperDAL] 0.25 mg PO DAILY 11/19/18 03/15/19 History Hydrocodone/Acetaminophen [[place] 1 tab PO Q6HR PRN 3 Days #12 tab 03/13/19 03/15/19 Rx 5-325] Allergies Allergy/AdvReac Type Severity Reaction Status Date / Time bupropion HCl AdvReac Confusion Verified 03/15/19 07:56 [From Wellbutrin] quetiapine fumarate AdvReac Confusion Verified 03/15/19 07:56 [From Seroquel] trazodone AdvReac Confusion Verified 03/15/19 07:56 Surgical - Exam Vital Signs Temp Pulse Resp BP Pulse Ox 98.2 F 59 L 18 175/99 100 03/15/19 01:17 03/15/19 01:17 03/15/19 01:17 03/15/19 01:17 03/15/19 01:17 Results - Labs 03/15/19 01:57 03/15/19 01:57 Abnormal Lab Results - Last 24 Hours (Table) 03/15/19 03/15/19 Range/Units 01:57 01:57 WBC 13.6 H (3.8-10.6) k/uL Neutrophils # 10.5 H (1.3-7.7) k/uL Glucose 112 H (74-99) mg/dL AST 54 H (14-36) U/L Diabetes panel 03/15/19 Range/Units 01:57 Sodium 138 (137-145) mmol/L Potassium 3.8 (3.5-5.1) mmol/L Chloride 103 (98-107) mmol/L Carbon Dioxide 22 (22-30) mmol/L BUN 11 (7-17) mg/dL Creatinine 0.74 (0.52-1.04) mg/dL Glucose 112 H (74-99) mg/dL Calcium 9.4 (8.4-10.2) mg/dL AST 54 H (14-36) U/L ALT 48 (9-52) U/L Alkaline Phosphatase 58 (38-126) U/L Total Protein 7.2 (6.3-8.2) g/dL Albumin 4.2 (3.5-5.0) g/dL Calcium panel 03/15/19 Range/Units 01:57 Calcium 9.4 (8.4-10.2) mg/dL Albumin 4.2 (3.5-5.0) g/dL Pituitary panel 03/15/19 Range/Units 01:57 Sodium 138 (137-145) mmol/L Potassium 3.8 (3.5-5.1) mmol/L Chloride 103 (98-107) mmol/L Carbon Dioxide 22 (22-30) mmol/L BUN 11 (7-17) mg/dL Creatinine 0.74 (0.52-1.04) mg/dL Glucose 112 H (74-99) mg/dL Calcium 9.4 (8.4-10.2) mg/dL Adrenal panel 03/15/19 Range/Units 01:57 Sodium 138 (137-145) mmol/L Potassium 3.8 (3.5-5.1) mmol/L Chloride 103 (98-107) mmol/L Carbon Dioxide 22 (22-30) mmol/L BUN 11 (7-17) mg/dL Creatinine 0.74 (0.52-1.04) mg/dL Glucose 112 H (74-99) mg/dL Calcium 9.4 (8.4-10.2) mg/dL Total Bilirubin 0.3 (0.2-1.3) mg/dL AST 54 H (14-36) U/L ALT 48 (9-52) U/L Alkaline Phosphatase 58 (38-126) U/L Total Protein 7.2 (6.3-8.2) g/dL Albumin 4.2 (3.5-5.0) g/dL
--- NOTE | 2019-03-15 18:01 | CONS ---
CONSULTATION CHIEF COMPLAINT: Persistent postoperative pain. HISTORY OF PRESENT ILLNESS: The details of this lady's history can be found in her recent hospital documents. She came with abdominal pain and underwent an uneventful laparoscopic cholecystectomy. She went home yesterday. Apparently, she came back to the emergency room in middle of the night because of recurrent pain. She did not get her prescriptions filled, which included an antibiotic. She apparently had no vomiting hematemesis. White count [id number]. There was a possibility of a bile leak. Apparently on the floor she became very upset, hostile and aggressive. She had to be accompanied out of the hospital by security. Review of systems can be found in the emergency room note. I was unable to take a history from her. Past medical history, family history and personal and social histories were presumed unchanged. PHYSICAL EXAMINATION: She could not be examined. She is extremely upset and aggressive. IMPRESSION: 1. Postoperative abdominal pain. 2. Status post cholecystectomy (laparoscopic). 3. Possible bile leak. 4. Elevated white count. 5. Personality disorder with aggression. I have and no recommendations. She was being escorted out of the hospital by security when I saw her. MMODL / IJN: [id number] /
== END 2019-03-15 10:41 | disposition left against medical advice (07) ==
LOC: EC 01:10 → 4MS4W 02:43
PROVIDERS: ADMIT Surgery; ATTEND Surgery
DX: G89.18 Other acute postprocedural pain (principal); R10.9 Unspecified abdominal pain; R11.0 Nausea; D72.829 Elevated white blood cell count, unspecified; F60.9 Personality disorder, unspecified; F91.8 Other conduct disorders; F31.9 Bipolar disorder, unspecified; R13.10 Dysphagia, unspecified; L60.0 Ingrowing nail; J35.1 Hypertrophy of tonsils; B35.1 Tinea unguium; F17.210 Nicotine dependence, cigarettes, uncomplicated; Z79.899 Other long term (current) drug therapy; Z88.8 Allergy status to other drugs, medicaments and biological substances; Z90.710 Acquired absence of both cervix and uterus; Z90.79 Acquired absence of other genital organ(s); Z87.440 Personal history of urinary (tract) infections; Z90.49 Acquired absence of other specified parts of digestive tract; Z83.3 Family history of diabetes mellitus; Z83.6 Family history of other diseases of the respiratory system; Z53.29 Procedure and treatment not carried out because of patient's decision for other reasons
CPT/HCPCS: 96376 ×2; 96365; 96366; 96361; 96375; 99285; 36415; 80053; 83690; 85025; 85610; 85730; 87040; 74177; 78226; G0378; A9537; J2543; J2270; J2405; J1170; Q9967

== ENCOUNTER 2021-01-12 17:39 | Emergency (ER) | payer MEDICARE, OTHER ==
[2021-01-12 17:57] VITALS: BP 135/82; PULSE 94; RESP 17; TEMP 99
--- NOTE | 2021-01-12 19:03 | ED ---
Psych HPI - General Chief Complaint: Psychiatric Symptoms Stated Complaint: Mental Health Time Seen by Provider: 01/12/21 18:00 Source: patient, RN notes reviewed Mode of arrival: ambulatory - History of Present Illness Initial Comments: Patient is a 41-year-old female that presents to emergency department per her primary care's recommendation to get evaluated by EPS. Patient notes that has become way past overwhelming recently. Patient was very short with answers flat affect. She was in no other acute pain or distress. She denied any chest pain short of breath headache nausea vomiting diarrhea constipation fever fatigue chills. - Related Data Home Medications Medication Instructions Recorded Confirmed DULoxetine HCL [Cymbalta] 20 mg PO DAILY 11/19/18 03/15/19 PARoxetine [Paxil] 10 mg PO DAILY 11/19/18 03/15/19 busPIRone HCl [Buspar] 5 mg PO DAILY 11/19/18 03/15/19 risperiDONE [RisperDAL] 0.25 mg PO DAILY 11/19/18 03/15/19 Previous Rx's Medication Instructions Recorded Hydrocodone/Acetaminophen [[place] 1 tab PO Q6HR PRN 3 Days #12 tab 03/13/19 5-325] Allergies Allergy/AdvReac Type Severity Reaction Status Date / Time bupropion HCl AdvReac Confusion Verified 01/12/21 17:57 [From Wellbutrin] quetiapine fumarate AdvReac Confusion Verified 01/12/21 17:57 [From Seroquel] trazodone AdvReac Confusion Verified 01/12/21 17:57 Review of Systems ROS Statement: Those systems with pertinent positive or pertinent negative responses have been documented in the HPI. ROS Other: All systems not noted in ROS Statement are negative. Past Medical History Past Medical History: No Reported History Additional Past Medical History / Comment(s): Large tonsills-difficulty swallowing at times, elevated heart rate, bilateral feet have fungus/ingrown toenails and cramps-pain with walking at times, R eye unclear vision since accidental nail glue went into that eye, UTI. History of Any Multi-Drug Resistant Organisms: None Reported Past Surgical History: Hernia Repair, Hysterectomy, Tubal Ligation Additional Past Surgical History / Comment(s): Ventral hernia repair, ectopic /laparoscopic surgery to laparotomy, L salpingostomy for drainage of a cyst. Past Anesthesia/Blood Transfusion Reactions: Motion Sickness Past Psychological History: Bipolar, Depression Smoking Status: Never smoker Past Alcohol Use History: Rare Past Drug Use History: None Reported - Past Family History Mother Family Medical History: Diabetes Mellitus, Pneumonia Additional Family Medical History / Comment(s): Mother of pneumonia/diabetes. Father Family Medical History: No Reported History Additional Family Medical History / Comment(s): Father is healthy General Exam Limitations: no limitations General appearance: alert, in no apparent distress Head exam: Present: atraumatic, normocephalic, normal inspection Eye exam: Present: normal appearance, PERRL, EOMI. Absent: scleral icterus, conjunctival injection, periorbital swelling Neck exam: Present: normal inspection Respiratory exam: Present: normal lung sounds bilaterally. Absent: respiratory distress, wheezes, rales, rhonchi, stridor Cardiovascular Exam: Present: regular rate, normal rhythm, normal heart sounds. Absent: systolic murmur, diastolic murmur, rubs, gallop, clicks GI/Abdominal exam: Present: soft, normal bowel sounds. Absent: distended, tenderness, guarding, rebound, rigid Extremities exam: Present: normal inspection, full ROM, normal capillary refill. Absent: tenderness, pedal edema, joint swelling, calf tenderness Psychiatric exam: Present: depressed, flat affect Skin exam: Present: warm, dry, intact, normal color. Absent: rash Course Vital Signs 01/12/21 17:48 Temperature 99.0 F Pulse Rate 94 Respiratory 17 Rate Blood Pressure 135/82 O2 Sat by Pulse 98 Oximetry Medical Decision Making - Medical Decision Making 41-year-old female presenting for primary care's request to get a valid by EPS. Patient was medically cleared, patient told nurse that she noticed a and walked out. Case discussed with Dr. Iyer outpatient discharge. Disposition Clinical Impression: Depression Disposition: HOME SELF-CARE Condition: Stable Is patient prescribed a controlled substance at d/c from ED?: No Referrals: Lexx Morrison MD [Primary Care Provider] - 1-2 days Time of Disposition: 19:03
== END 2021-01-12 18:58 | disposition home or self-care (01) ==
LOC: EC 17:39
DX: F32.9 Major depressive disorder, single episode, unspecified (principal); Z88.8 Allergy status to other drugs, medicaments and biological substances; Z79.899 Other long term (current) drug therapy
CPT/HCPCS: 82075; 99283

== ENCOUNTER 2021-01-17 05:35 | Inpatient (IN) | payer MEDICARE, MEDICAID ==
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
[2021-01-17 06:38] LABS: Appearance,Urine Clear (Clear); Bacteria,Urine Rare /hpf; Bilirubin,Urine Negative (Negative); Blood,Urine Negative (Negative); Color,Urine Colorless; Glucose,Urine (UA) Negative (Negative); Ketones,Urine Negative (Negative); Leukocyte Esterase,Urine Small (Negative); Nitrite,Urine Negative (Negative); Protein,Urine Negative (Negative); RBC,Urine 1 /hpf (0-5); Specific Gravity,Urine 1.005 (1.001-1.035); Squamous Epithelial Cell,Urine 3 /hpf (0-4); Urobilinogen,Urine <2.0 mg/dL (<2.0); WBC,Urine 11 /hpf (0-5)
[2021-01-17 07:18] LABS: Amphetamine Screen,Urine Not Detected (NotDetected); Barbiturate Screen,Urine Not Detected (NotDetected); Benzodiazepines Screen,Urine Not Detected (NotDetected); Cocaine Screen,Urine Not Detected (NotDetected); Methadone Screen, Urine Not Detected (NotDetected); Opiate Screen,Urine Not Detected (NotDetected); Oxycodone Screen, Urine Not Detected (NotDetected); Phencyclidine Screen,Urine Not Detected (NotDetected); Tricyclic Antidepressant,Urine Not Detected (NotDetected); Urn Cannabinoid Scrn Not Detected (NotDetected)
[2021-01-17] MEDS ORDERED: MAG HYDROX/AL HYDROX/SIMETH 30 ML CUP PO PRN (10:53)
[2021-01-17] MEDS ORDERED: LORazepam 1 MG TAB PO PRN (10:53)
[2021-01-17] MEDS ORDERED: LORazepam 2 MG/ML INJ IM PRN (10:56)
[2021-01-17] MEDS ORDERED: HALOPERIDOL LACTATE 5 MG/ML 1 ML VIAL IM PRN (10:56)
[2021-01-17] MEDS ORDERED: haloperidoL 5 MG TAB PO PRN (10:56)
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
--- NOTE | 2021-01-17 23:35 | CONS ---
CONSULTATION CHIEF COMPLAINT: Paranoia. HISTORY OF PRESENT ILLNESS: This is the is first known admission for this 41-year-old female. She is in and out of the office all the time. She makes appointments and does not keep them. She then turns front walks in. She will sometimes stay for an appointment. Sometimes not. She has relationship with one of the social workers in the office in is irresponsible in maintaining those visits as well. She became deluded enough that she came to emergency room. REVIEW OF SYSTEMS: Review of systems she is otherwise healthy. She has no history of headaches, chest pain, abdominal pain, vomiting, urinary complaints, diabetes, etc. It is not known if she takes medications or not. She has been tried on various medicines including Abilify, Valium, Vraylar, Paxil, and others. We have been making an effort to try to get her into [facility]. She did go down once to register, but then did not follow up. Past medical history, family history personal and social histories are otherwise unremarkable. She used to smoke. She has had a hysterectomy and a herniorrhaphy. She does not abuse alcohol or drugs. PHYSICAL EXAMINATION: Blood pressure is 128/64 with a pulse of 80, respirations of 10. She is afebrile. In general, she appeared to be well developed, well nourished, and in no acute distress. Skin color is normal. Skin is warm, dry. Lymph nodes are not enlarged. Head, ears, eyes, nose, mouth and throat were normal. Neck veins not distended thyroid. Liver was enlarged. Chest is clear. Cardiac exam is normal. Abdomen is soft, nontender. Extremities: Normal. Neurologically she is intact. IMPRESSION: She is admitted to the hospital with diagnosis: Paranoid delusions. RECOMMENDATIONS: None at this time. MMODL / IJN: [id number] /
[2021-01-18] MEDS: CLOTRIMAZOLE 1% CREAM 30 GM TUBE TOPICAL SCH ×3 (01:48→21:25)
[2021-01-18] MEDS: NAPROXEN 250 MG TAB PO PRN ×2 (02:51→09:17)
[2021-01-18] MEDS: FAMOTIDINE 20 MG TAB PO SCH (09:13)
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
[2021-01-19] MEDS: CLOTRIMAZOLE 1% CREAM 30 GM TUBE TOPICAL SCH ×2 (09:09→21:21)
[2021-01-19] MEDS: FAMOTIDINE 20 MG TAB PO SCH (09:09)
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
[2021-01-19] MEDS ORDERED: PALIPERIDONE 3 MG TAB.ER.24 PO SCH (21:00)
[2021-01-20] MEDS: CLOTRIMAZOLE 1% CREAM 30 GM TUBE TOPICAL SCH ×2 (09:05→19:55)
[2021-01-20] MEDS: FAMOTIDINE 20 MG TAB PO SCH (09:05)
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
[2021-01-20] MEDS ORDERED: PALIPERIDONE 3 MG TAB.ER.24 PO ONE (21:00)
[2021-01-21] MEDS: CLOTRIMAZOLE 1% CREAM 30 GM TUBE TOPICAL SCH ×2 (08:46→22:18)
[2021-01-21] MEDS: FAMOTIDINE 20 MG TAB PO SCH (08:46)
[2021-01-21] MEDS: NAPROXEN 250 MG TAB PO PRN (14:37)
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
[2021-01-21] MEDS ORDERED: PALIPERIDONE 6 MG TAB.ER.24 PO SCH (21:00)
[2021-01-21] MEDS: PALIPERIDONE 3 MG TAB.ER.24 PO SCH (22:19)
[2021-01-22] MEDS: CLOTRIMAZOLE 1% CREAM 30 GM TUBE TOPICAL SCH ×2 (08:43→21:35)
[2021-01-22] MEDS: FAMOTIDINE 20 MG TAB PO SCH (08:43)
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
[2021-01-22] MEDS: MAGNESIUM HYDROXIDE 2,400 MG/10 ML CUP PO PRN (17:26)
[2021-01-22] MEDS: ACETAMINOPHEN TAB 325 MG TAB PO PRN (17:28)
[2021-01-22] MEDS ORDERED: PALIPERIDONE 6 MG TAB.ER.24 PO SCH (21:00)
[2021-01-22] MEDS: PALIPERIDONE 3 MG TAB.ER.24 PO SCH (21:36)
[2021-01-23] MEDS: CLOTRIMAZOLE 1% CREAM 30 GM TUBE TOPICAL SCH ×2 (08:54→21:57)
[2021-01-23] MEDS: FAMOTIDINE 20 MG TAB PO SCH (08:54)
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
[2021-01-23] MEDS: MAGNESIUM HYDROXIDE 2,400 MG/10 ML CUP PO PRN (16:49)
[2021-01-23] MEDS: PALIPERIDONE 3 MG TAB.ER.24 PO SCH (21:58)
[2021-01-24] MEDS: ACETAMINOPHEN TAB 325 MG TAB PO PRN (02:16)
[2021-01-24] MEDS: NAPROXEN 250 MG TAB PO PRN (02:17)
[2021-01-24 06:29] VITALS: BP 117/56; PULSE 82; RESP 18; TEMP 98.1
[2021-01-24] MEDS: FAMOTIDINE 20 MG TAB PO SCH (09:16)
[2021-01-24] MEDS: CLOTRIMAZOLE 1% CREAM 30 GM TUBE TOPICAL SCH (09:17)
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
== END 2021-01-24 11:35 | disposition home or self-care (01) | DRG 885 ==
LOC: EC 05:35 → 3MHU 08:36
PROVIDERS: ADMIT Psychiatry & Neurology Psychiatry; ATTEND Psychiatry & Neurology Psychiatry
DX: F29 Unspecified psychosis not due to a substance or known physiological condition (principal); F06.2 Psychotic disorder with delusions due to known physiological condition; T43.595A Adverse effect of other antipsychotics and neuroleptics, initial encounter; Y92.9 Unspecified place or not applicable; F41.9 Anxiety disorder, unspecified; F32.9 Major depressive disorder, single episode, unspecified; F22 Delusional disorders; Z83.3 Family history of diabetes mellitus; Z90.49 Acquired absence of other specified parts of digestive tract; Z90.710 Acquired absence of both cervix and uterus; Z79.899 Other long term (current) drug therapy
CPT/HCPCS: 80306; 81001; 81025; 82075; 99284

== ENCOUNTER 2021-05-18 23:45 | Inpatient (IN) | payer MEDICARE, MEDICAID ==
--- NOTE | 2021-05-19 00:08 | ED ---
Psych HPI - General Chief Complaint: Psychiatric Symptoms Stated Complaint: Mental Health Time Seen by Provider: 05/18/21 23:53 Source: patient, police, RN notes reviewed, old records reviewed Mode of arrival: ambulatory - History of Present Illness Initial Comments: This is a 41-year-old female presenting under pickup order unsure cause. Likely not taking medications. Patient presents for psychiatric evaluation MD Complaint: suicidal ideation (Patient denies), feels depressed (History of), altered mental status -: unknown Associated Psychiatric Symptoms: depression History of same: Yes Quality: intermittent, getting worse Improves With: none, medication Context: recent drug abuse, not taking psychiatric medications Treatments Prior to Arrival: placed on mental health hold If Self Harm: admits thoughts of self harm - Related Data Home Medications Medication Instructions Recorded Confirmed Famotidine [Pepcid] 20 mg PO DAILY 01/17/21 01/17/21 Ibuprofen [Motrin] 600 mg PO Q8HR PRN 01/17/21 01/17/21 Ketoconazole [Ketoconazole 2%] 1 applic TOPICAL BID 01/17/21 01/17/21 Previous Rx's Medication Instructions Recorded Paliperidone [Invega] 3 mg PO HS 30 Days tablet 01/24/21 Allergies Allergy/AdvReac Type Severity Reaction Status Date / Time bupropion HCl AdvReac Confusion Verified 05/18/21 23:49 [From Wellbutrin] quetiapine fumarate AdvReac Confusion Verified 05/18/21 23:49 [From Seroquel] trazodone AdvReac Confusion Verified 05/18/21 23:49 Review of Systems ROS Statement: Those systems with pertinent positive or pertinent negative responses have been documented in the HPI. ROS Other: All systems not noted in ROS Statement are negative. Past Medical History Past Medical History: No Reported History Additional Past Medical History / Comment(s): Large tonsills-difficulty swallowing at times, elevated heart rate, bilateral feet have fungus/ingrown toenails and cramps-pain with walking at times, R eye unclear vision since accidental nail glue went into that eye, UTI. History of Any Multi-Drug Resistant Organisms: None Reported Past Surgical History: Hernia Repair, Hysterectomy, Tubal Ligation Additional Past Surgical History / Comment(s): Ventral hernia repair, ectopic /laparoscopic surgery to laparotomy, L salpingostomy for drainage of a cyst. Past Anesthesia/Blood Transfusion Reactions: Motion Sickness Past Psychological History: Anxiety, Bipolar, Depression Smoking Status: Never smoker Past Alcohol Use History: Rare Past Drug Use History: None Reported - Past Family History Mother Family Medical History: Diabetes Mellitus, Pneumonia Additional Family Medical History / Comment(s): Mother of pneumonia/diabetes. Father Family Medical History: No Reported History Additional Family Medical History / Comment(s): Father is healthy General Exam Limitations: no limitations General appearance: alert, in no apparent distress Head exam: Present: atraumatic, normocephalic, normal inspection Eye exam: Present: normal appearance, PERRL, EOMI. Absent: scleral icterus, conjunctival injection, periorbital swelling ENT exam: Present: normal exam, mucous membranes moist Neck exam: Present: normal inspection. Absent: tenderness, meningismus, lymphadenopathy Respiratory exam: Present: normal lung sounds bilaterally. Absent: respiratory distress, wheezes, rales, rhonchi, stridor Cardiovascular Exam: Present: regular rate, normal rhythm, normal heart sounds. Absent: systolic murmur, diastolic murmur, rubs, gallop, clicks GI/Abdominal exam: Present: soft, normal bowel sounds. Absent: distended, tenderness, guarding, rebound, rigid Extremities exam: Present: normal inspection, full ROM, normal capillary refill. Absent: tenderness, pedal edema, joint swelling, calf tenderness Back exam: Present: normal inspection Neurological exam: Present: alert, oriented X3, CN II-XII intact Psychiatric exam: Present: normal affect, normal mood Skin exam: Present: warm, dry, intact, normal color. Absent: rash Course Vital Signs 05/18/21 23:48 Temperature 98.7 F Pulse Rate 95 Respiratory 18 Rate Blood Pressure 133/90 O2 Sat by Pulse 100 Oximetry - Reevaluation(s) Reevaluation #1: 05/19/21 00:09 Medical record is reviewed Medical Decision Making - Medical Decision Making 41 female to be admitted for psychiatric evaluation and treatment - Lab Data Lab Results 05/19/21 Range/Units 00:23 Urine Opiates Screen Not Detected (NotDetected) Ur Oxycodone Screen Not Detected (NotDetected) Urine Methadone Screen Not Detected (NotDetected) Ur Propoxyphene Screen Not Detected (NotDetected) Ur Barbiturates Screen Not Detected (NotDetected) U Tricyclic Antidepress Not Detected (NotDetected) Ur Phencyclidine Scrn Not Detected (NotDetected) Ur Amphetamines Screen Not Detected (NotDetected) U Methamphetamines Scrn Not Detected (NotDetected) U Benzodiazepines Scrn Not Detected (NotDetected) Urine Cocaine Screen Not Detected (NotDetected) U Marijuana (THC) Screen Not Detected (NotDetected) Disposition Clinical Impression: Mood disorder, Unspecified psychosis, Acute psychosis Disposition: TRANSFER TO PSYCH HOSP/UNIT Condition: Fair Is patient prescribed a controlled substance at d/c from ED?: No Referrals: Lexx Morrison MD [Primary Care Provider] - 1-2 days
[2021-05-19 01:08] LABS: Amphetamine Screen,Urine Not Detected (NotDetected); Barbiturate Screen,Urine Not Detected (NotDetected); Benzodiazepines Screen,Urine Not Detected (NotDetected); Cocaine Screen,Urine Not Detected (NotDetected); Methadone Screen, Urine Not Detected (NotDetected); Opiate Screen,Urine Not Detected (NotDetected); Oxycodone Screen, Urine Not Detected (NotDetected); Phencyclidine Screen,Urine Not Detected (NotDetected); Tricyclic Antidepressant,Urine Not Detected (NotDetected); Urn Cannabinoid Scrn Not Detected (NotDetected)
[2021-05-19] MEDS ORDERED: MAGNESIUM HYDROXIDE 2,400 MG/10 ML CUP PO PRN (05:22)
[2021-05-19] MEDS ORDERED: LORazepam 1 MG TAB PO PRN (05:22)
[2021-05-19] MEDS ORDERED: LORazepam 2 MG/ML INJ IM PRN (05:28)
[2021-05-19] MEDS ORDERED: HALOPERIDOL LACTATE 5 MG/ML 1 ML VIAL IM PRN ×2 (05:29→13:09)
[2021-05-19] MEDS ORDERED: haloperidoL 5 MG TAB PO PRN (05:29)
[2021-05-19 05:39] LABS: Amorphous Sediment,Urine Many /hpf; Appearance,Urine Cloudy (Clear); Bacteria,Urine Few /hpf; Bilirubin,Urine Negative (Negative); Blood,Urine Negative (Negative); Color,Urine Light Yellow; Glucose,Urine (UA) Negative (Negative); Ketones,Urine 1+ (Negative); Leukocyte Esterase,Urine Large (Negative); Mucus,Urine Rare /hpf; Nitrite,Urine Negative (Negative); PH, Urine 7.5 (5.0-8.0); Protein,Urine Trace (Negative); RBC,Urine 2 /hpf (0-5); Specific Gravity,Urine 1.022 (1.001-1.035); Squamous Epithelial Cell,Urine 1 /hpf (0-4); Urobilinogen,Urine <2.0 mg/dL (<2.0); WBC,Urine 16 /hpf (0-5)
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
[2021-05-19] MEDS: PALIPERIDONE 3 MG TAB.ER.24 PO SCH (21:09)
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
[2021-05-19] MEDS: ACETAMINOPHEN TAB 325 MG TAB PO PRN (21:41)
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
[2021-05-20] MEDS: PALIPERIDONE 3 MG TAB.ER.24 PO SCH (21:56)
[2021-05-20] MEDS: ACETAMINOPHEN TAB 325 MG TAB PO PRN (22:46)
--- NOTE | 2021-05-21 11:41 | P.PN ---
Subjective Progress Note Date: 05/21/21 Principal diagnosis: Acute psychotic disorder unspecified Rule out bipolar disorder manic type Subjective data: I need to get rid of the people that are in my lives who are trying to make me change my roman catholic as a Cheondoism I'm also being harassed and [place] is [place] free [place] They have no business doing that to me and I have my rights" Objective data: Patient is casually dressed and groomed Patient presents with pressured speech and flight of ideas She comes across as paranoid and projective Patient seems to rationalize and intellectualize Patient gives different excuses for not being on medications and how this is not her problem and that she is being ostracized Patient's formal and operational judgment and insight are poor Problem-solving skills are impaired Assessment: Acute psychotic disorder Rule out bipolar disorder manic type Plan: The patient is currently admitted under involuntary status for treatment and stabilization We will increase patient's in [place] dosage to 3 mg tablet 1-1/2 tablets daily Continue current care and support Patient remains delusional and psychotic and is difficult to be redirected due to her fixed false delusions She surprisingly has been taking her medications as prescribed Marcos Wiley MD 05/21/2021 Objective - Vital Signs Vital signs: Vital Signs Temp 98.2 F 05/19/21 05:14 Pulse 84 05/19/21 05:14 Resp 16 05/19/21 05:14 BP 117/70 05/19/21 05:14 Pulse Ox 100 05/19/21 05:14 Intake & Output 05/20/21 05/21/21 05/21/21 18:59 06:59 18:59 Weight 75.7 kg
[2021-05-21] MEDS: PALIPERIDONE 3 MG TAB.ER.24 PO SCH (21:14)
--- NOTE | 2021-05-22 11:29 | P.PN ---
Progress Note - Text Progress Note Date: 05/22/21 Interval History: Patient was seen in her room and was directable and agreeable to speak with pattern chart writer in her room. The patient continues to report that the reasons for her admission were predicated on line's. The patient continues to maintain that she attended her appointments and that she does not need to be admitted to the psychiatric unit. However, discussion with [facility] reveals that the patient has not been in adherent with her appointments. The patient continues to endorse significant paranoia believing that multiple people in the community, in particular man, are always out to get her or try to get her to live life against her beliefs in sabianism. The patient reports that this is causing her to leave her sabianism and therefore she has a headache. She is otherwise not reporting any other bizarre delusional thoughts. She is not reporting any auditory or vis ual hallucinations. She denies any paranoia or other delusions. The patient has been adherent with her medications and is agreeable to going up on her Invega. Mental Status Exam: General Appearance: Patient appears to be stated age is alert, directable, and cooperative. Behavior: Patient is calmly seated without any agitated behavior. Speech: Patient's speech is fluent and nonpressured. Normal volume today. Mood/Affect: Mood is upset. Affect is irritable but less so compared to previous. Suicidality/Homicidality: Patient denies having any suicidal or homicidal ideation intent or plan. Perceptions: Patient denies any visual hallucinations and denies any auditory hallucinations Though content/process: Patient makes loose associations and appears to be a somewhat disorganized historian. Memory and concentration: AOX3, grossly intact for the purposes of this session Judgment and insight: Poor Vital Signs Temp 98.2 F 05/19/21 05:14 Pulse 84 05/19/21 05:14 Resp 16 05/19/21 05:14 BP 117/70 05/19/21 05:14 Pulse Ox 100 05/19/21 05:14 Intake & Output 05/21/21 05/22/21 05/22/21 18:59 06:59 18:59 Weight 75.7 kg Assessment Acute psychosis Plan: -Patient continues to meet criteria for inpatient psychiatric admission for symptom stabilization and safety. A demand for court hearing is ongoing. -Medications: Increase Invega to 6 mg by mouth at bedtime for management of acute psychosis. Due to the patient's history of nonadherence to treatment, we will likely transition the patient to Invega Sustenna. -When necessary Ativan and Haldol for agitation/aggression. -SW on board for discharge planning. Encouraged the patient to participate in milieu.
[2021-05-22] MEDS ORDERED: PALIPERIDONE 6 MG TAB.ER.24 PO SCH (21:00)
[2021-05-23] MEDS: ACETAMINOPHEN TAB 325 MG TAB PO PRN ×2 (04:36→22:22)
--- NOTE | 2021-05-23 13:05 | P.PN ---
Progress Note - Text Progress Note Date: 05/23/21 Interval History: Patient was seen in her room and was directable and agreeable to speak with resume writer in the office. The patient continues to maintain that [facility] unfairly placed her back into the psychiatric unit. The patient maintains that she was keeping up with her appointments despite [facility] informing her that she was not. She is currently not reporting any suicidal or homicidal ideation, intention, and/or plan. She is not reporting any auditory or visual hallucinations. She does however continues endorse some paranoid and bizarre delusions at people in the community are trying to "get me to do things and is against my cheondoism." The patient maintains that she does not require medications however will take them at this time. She does not wish to be on the long-acting injectable medication. Mental Status Exam: General Appearance: Patient appears to be stated age is alert, directable, and cooperative. Behavior: Patient is calmly seated without any agitated behavior. Speech: Patient's speech is fluent and nonpressured. Normal volume today. Mood/Affect: Mood is irritable. Affect is irritable. Suicidality/Homicidality: Patient denies having any suicidal or homicidal ideation intent or plan. Perceptions: Patient denies any visual hallucinations and denies any auditory hallucinations Though content/process: She continues to endorse some paranoid delusions. Very concrete thought process. Memory and concentration: AOX3, grossly intact for the purposes of this session Judgment and insight: Poor Vital Signs Temp 97.8 F 05/23/21 04:39 Pulse 94 05/23/21 04:39 Resp 16 05/23/21 04:39 BP 113/54 05/23/21 04:39 Pulse Ox 97 05/23/21 04:39 Assessment Acute psychosis Plan: -Patient continues to meet criteria for inpatient psychiatric admission for symptom stabilization and safety. A demand for court hearing is ongoing. Court is scheduled for 06/07/2021. -Medications: Increase Invega to 9 mg by mouth at bedtime for management of acute psychosis. Due to the patient's history of nonadherence to treatment, we will likely transition the patient to Invega Sustenna. -When necessary Ativan and Haldol for agitation/aggression. -SW on board for discharge planning. Encouraged the patient to participate in milieu.
[2021-05-23] MEDS: NICOTINE 14MG/24HR PATCH TRANSDERM SCH (14:45)
[2021-05-23] MEDS: MAG HYDROX/AL HYDROX/SIMETH 30 ML CUP PO PRN (16:22)
[2021-05-23] MEDS: PALIPERIDONE 3 MG TAB.ER.24 PO SCH (21:13)
[2021-05-24] MEDS: ACETAMINOPHEN TAB 325 MG TAB PO PRN ×3 (04:21→19:58)
[2021-05-24] MEDS: NICOTINE 14MG/24HR PATCH TRANSDERM SCH ×2 (08:58→19:54)
--- NOTE | 2021-05-24 13:35 | P.PN ---
Progress Note - Text Progress Note Date: 05/24/21 Interval History: Patient was seen in her room and was directable and agreeable to speak with video games storywriter in the room. Currently, the patient is not reporting any suicidal or homicidal ideation, intention, and/or plan. She is not reporting any auditory or visual hallucinations. She continues to endorse some bizarre and paranoid delusions that people are "trying to get her to do things that is against my buddhist and against my peace." She expresses that she is tired of always helping others and not herself. The patient, despite numerous times strength educate her on the mental health court process, maintains that she does not need to be in here despite a court order. She states that someone from [facility] lied. She is otherwise adherent with her medications. Attempting to discuss a possible waving stipulation of mental health court to the patient did not help the patient decide what she wants to do. She was informed that she is scheduled for court on June 07. Mental Status Exam: General Appearance: Patient appears to be stated age is alert, directable, and cooperative. Behavior: Patient is calmly seated without any agitated behavior. Speech: Patient's speech is fluent and nonpressured. Normal volume today. Mood/Affect: Mood is irritable. Affect is irritable. Suicidality/Homicidality: Patient denies having any suicidal or homicidal ideation intent or plan. Perceptions: Patient denies any visual hallucinations and denies any auditory hallucinations Though content/process: She continues to endorse some paranoid delusions. Very concrete thought process. Memory and concentration: AOX3, grossly intact for the purposes of this session Judgment and insight: Poor Vital Signs Temp 98.2 F 05/24/21 13:24 Pulse 83 05/24/21 13:24 Resp 18 05/24/21 04:27 BP 124/59 05/24/21 13:24 Pulse Ox 97 05/23/21 04:39 Assessment Acute psychosis Plan: -Patient continues to meet criteria for inpatient psychiatric admission for symptom stabilization and safety. A demand for court hearing is ongoing. Court is scheduled for 06/07/2021. -Medications: Continue Invega 9 mg by mouth at bedtime for management of acute psychosis. -We will likely transition the patient to Invega Sustenna tomorrow. -When necessary Ativan and Haldol for agitation/aggression. -SW on board for discharge planning. Encouraged the patient to participate in milieu.
[2021-05-24] MEDS: PALIPERIDONE 3 MG TAB.ER.24 PO SCH (21:15)
[2021-05-25] MEDS: NICOTINE 14MG/24HR PATCH TRANSDERM SCH (08:31)
[2021-05-25] MEDS ORDERED: PALIPERIDONE IM 234 MG/1.5 ML SYG IM STA (10:55)
--- NOTE | 2021-05-25 11:27 | P.PN ---
Progress Note - Text Progress Note Date: 05/25/21 Interval History: Patient was seen in her room and was directable and agreeable to speak with contract technical writer in the room. Patient continues to report that she needs to set up healthy boundaries with people, community or constantly trying to get her to do things that disturb her peace. She continues to repeat this in many different ways. She is otherwise not reporting any suicidal or homicidal ideation, intention, and/or plan. She is denying any auditory or visual hallucinations. She reports no paranoia or other delusions. The patient has been reading up on the Invega medication and does agree that her thoughts tend to be racing and that the medications may help with this. She only reports that she feels some mild grogginess in the morning but is otherwise tolerating the medication well. She is agreeable to receiving long-acting Invega Sustenna today. The patient informs this provider that she is willing to waive and stupulate court if it would facilitate discharge. She is agreeable to taking her medications and following up with [facility]. Mental Status Exam: General Appearance: Patient appears to be stated age is alert, directable, and cooperative. Behavior: Patient is calmly seated without any agitated behavior. Speech: Patient's speech is fluent and nonpressured. Normal volume today. Mood/Affect: Mood is feeling okay. Affect is euthymic with appropriate range. Suicidality/Homicidality: Patient denies having any suicidal or homicidal ideation intent or plan. Perceptions: Patient denies any visual hallucinations and denies any auditory hallucinations Though content/process: Patient continues endorse mild paranoid delusions but otherwise displayed significantly improved thought content. Thought process appears to be linear and logical and short conversation. Memory and concentration: AOX3, grossly intact for the purposes of this session Judgment and insight: Mildly improving Vital Signs Temp 97.4 F L 05/25/21 01:56 Pulse 100 05/25/21 01:56 Resp 16 05/25/21 01:56 BP 125/59 05/25/21 01:56 Pulse Ox 97 05/23/21 04:39 Assessment Acute psychosis Plan: -Patient continues to meet criteria for inpatient psychiatric admission for symptom stabilization and safety. A demand for court hearing is ongoing. Court is scheduled for 06/07/2021. Patient informs this provider that she would waive and stipulate court. -Medications: Discontinue oral Invega and start Invega Sustenna 234 mg IM today. -When necessary Ativan and Haldol for agitation/aggression. -SW on board for discharge planning. Encouraged the patient to participate in milieu.
[2021-05-26] MEDS: NICOTINE 14MG/24HR PATCH TRANSDERM SCH (09:41)
[2021-05-26] MEDS: ARTIFICIAL TEARS-HYPROMELLOSE DROPS 15 ML BTL BOTH EYES PRN ×2 (09:42→23:44)
[2021-05-26] MEDS: BENZOCAINE/MENTHOL LOZENG 1 EACH LOZENGE MUCOUS MEM PRN (09:44)
[2021-05-26] MEDS: ACETAMINOPHEN TAB 325 MG TAB PO PRN ×2 (09:45→23:45)
--- NOTE | 2021-05-26 10:25 | P.PN ---
Progress Note - Text Progress Note Date: 05/26/21 Interval History: Patient was seen in her room and was directable and agreeable to speak with fiction writer in the office. The patient is not reporting any delusional thought content today and boundaries with others in the community. She does express some distress towards other providers stating that her "they don't believe in God I can't work with them." She is otherwise adherent with her medication and receive the first loading dose of Invega Sustenna yesterday without any incident. She is reporting no complications or side effects of the medication. The patient is not reporting any suicidal or homicidal ideation, intention, and/or plan. She is not reporting any auditory or visual hallucinations. The patient does express a strong desire for discharge however we do not have any contact information for her family and she has not signed any releases of information for anyone. The patient is scheduled for court on 06/07/2021. The patient expresses desire to waive and stipulate court. Mental Status Exam: General Appearance: Patient appears to be stated age is alert, directable, and cooperative. Behavior: Patient is calmly seated without any agitated behavior. Speech: Patient's speech is fluent and nonpressured. Normal volume today. Mood/Affect: Mood is feeling okay. Affect is euthymic with appropriate range. Suicidality/Homicidality: Patient denies having any suicidal or homicidal ideation intent or plan. Perceptions: Patient denies any visual hallucinations and denies any auditory hallucinations Though content/process: Patient continues endorse mild paranoid delusions but otherwise displayed significantly improved thought content. Thought process appears to be linear and logical and short conversation. Memory and concentration: AOX3, grossly intact for the purposes of this session Judgment and insight: Mildly improving Vital Signs Temp 97.4 F L 05/26/21 07:58 Pulse 82 05/26/21 07:58 Resp 20 05/26/21 07:58 BP 140/64 05/26/21 07:58 Pulse Ox 97 05/23/21 04:39 Assessment Acute psychosis Plan: -Patient continues to meet criteria for inpatient psychiatric admission for symptom stabilization and safety. A demand for court hearing is ongoing. Court is scheduled for 06/07/2021. Patient informs this provider that she would waive and stipulate court. -Medications: Patient received Invega Sustenna 234 mg on 05/25/2021. We will schedule the second loading dose of Invega Sustenna 156 mg on 05/29/21. -Recommend medical to evaluate the patient for urinary tract infection as the patient is expressing some dysuria. -When necessary Ativan and Haldol for agitation/aggression. -SW on board for discharge planning. Encouraged the patient to participate in milieu.
[2021-05-26] MEDS: SULFAMETHOX-TMP 800-160MG 1 EACH TAB PO SCH ×2 (13:14→21:24)
[2021-05-27 07:20] VITALS: RESP 14
[2021-05-27] MEDS: NICOTINE 14MG/24HR PATCH TRANSDERM SCH (08:37)
[2021-05-27] MEDS: ARTIFICIAL TEARS-HYPROMELLOSE DROPS 15 ML BTL BOTH EYES PRN ×2 (08:37→16:21)
[2021-05-27] MEDS: SULFAMETHOX-TMP 800-160MG 1 EACH TAB PO SCH ×2 (08:37→20:40)
[2021-05-27] MEDS: BENZOCAINE/MENTHOL LOZENG 1 EACH LOZENGE MUCOUS MEM PRN ×2 (08:38→16:23)
[2021-05-27] MEDS: ACETAMINOPHEN TAB 325 MG TAB PO PRN ×2 (08:39→16:24)
[2021-05-27] MEDS: FAMOTIDINE 20 MG TAB PO SCH (08:39)
[2021-05-27] MEDS ORDERED: FAMOTIDINE 20 MG TAB PO SCH (09:00)
--- NOTE | 2021-05-27 16:24 | PN ---
PROGRESS NOTE DATE OF SERVICE: 05/27/2021. CHIEF COMPLAINT: The patient had high stress. She had a paranoid thinking. According to [facility], she had not been compliant with treatment and thus was referred to the hospital on a pick-up order. INTERVAL HISTORY: The patient has been doing fair. She had a quiet day yesterday. She comes out on the unit. She has been cooperative with care. She continued to have complaints about her interactions with some of her peers. She made comments about feeling that she was being persecuted by being kept in the hospital. She slept well last night. Today she has been up. She has been out in the day area. She attended groups today and seemed to engage well with groups. She has been showing fairly good energy today. She has been out and socializing with others. She has presented with a more upbeat mood today compared to previous days. When I talked to her, she had no specific complaints or concerns relating to her treatment here. She did have a big focus on the idea that she is too nice a person and so many people then take advantage of her. She complained about having trouble setting limits with others. She did note that she has one friend down in [place] who she finds as a supportive person in her life. It is noteworthy that she did not seem to have any significant complaints about any situations on the unit. She tolerates her psychotropic medications. MENTAL STATUS: Patient sat without restlessness. She had good eye contact. She answered questions appropriately. Her thoughts were clear, coherent and goal-directed. She was spontaneous and interactive. She talked quite a bit about some of the struggles she feels she has with setting limits, as noted above. Her affect was in a reasonable range. She smiled. She was friendly. Her mood was positive. She did not appear to be distressed. She continues to show some indications of paranoid delusions, though that seems to be waning. She voiced no thoughts of harm. She was oriented and alert. ASSESSMENT: I will continue the current diagnosis and treatment plan. I will continue psychotropic medications the same. We reviewed issues relating to Invega Sustenna. The patient has not had any issues with the start of Invega and feels this is a positive option for her. I reviewed indication, potential side effects and concerns relating to metabolics and movement disorder issues. Patient seemed to have a reasonably good understanding of factors around antipsychotic medications. We will coordinate with [facility] in regard to treatment and discharge planning. MMCATHIEL / IJN: [id number] /
--- NOTE | 2021-05-27 17:39 | PN ---
PROGRESS NOTE DATE OF SERVICE: 05/27/2021 CHIEF COMPLAINT: Frequency, urgency and dysuria. HISTORY OF PRESENT ILLNESS: This lady has developed the above-mentioned symptoms. She has had no fever or chills. PHYSICAL EXAM: Physical examination is unremarkable. She is afebrile. There is no flank tenderness. IMPRESSION: Frequency, urgency and dysuria. PLAN: 1. UA. 2. Start Bactrim DS twice a day. MMODL / IJN: [id number] /
[2021-05-28] MEDS: NICOTINE 14MG/24HR PATCH TRANSDERM SCH (08:59)
[2021-05-28] MEDS: FAMOTIDINE 20 MG TAB PO SCH (08:59)
[2021-05-28] MEDS: SULFAMETHOX-TMP 800-160MG 1 EACH TAB PO SCH ×2 (08:59→21:45)
--- NOTE | 2021-05-28 11:49 | PN ---
PROGRESS NOTE DATE OF SERVICE: 05/28/2021. CHIEF COMPLAINT: The patient had high stress. She had paranoid thinking. According to [facility], she had not been compliant with treatment and thus was referred to the hospital on a pick-up order. INTERVAL HISTORY: Patient has been doing fair. She had a quiet day yesterday. She comes out on the unit. She has been socializing with peers. She has attended groups. She has some ups and downs in her mood, though overall she seemed to be showing improvement. She said she slept fairly well last night, though noted that she had a dream that she was recalling. She said the dream was somewhat traumatic for her. She talked at length about the idea that she remembers many of her dreams and that her dreams seem to be related to things that are going on in her daily life. She was vague about whether the dreams were truly traumatic in nature. She says that she does not have dreams as she is falling asleep or that she wakes up and feels that she is in the middle of dreams. She says that to the best of her knowledge the dreaming is in her deep sleep. She says that her mood is somewhat improved. She acknowledges that she struggles with letting other people take advantage of her and not feeling so strong about herself. She tolerates her psychotropic medications. MENTAL STATUS EXAM: Patient sat with a little restlessness. She gave fairly good eye contact. She answered questions appropriately. Her thoughts were clear and coherent. At times she rambled some and talked at length about some of the things she has been thinking about. She also got into some thoughts about her experience with her methodist belief and God. Her affect was a little intense, her mood dysphoric, though not clearly down or depressed. She did not appear to be significantly distressed. She seemed to suggest some indication of some paranoid thinking, though this seems to be quieting. She was oriented and alert. ASSESSMENT: I will continue the current diagnosis and treatment plan. I will continue psychotropic medications the same. I discussed medication issues with the patient, including indication, potential side effects, concerns related to metabolics and movement disorder issues. We will focus on stabilization and discharge planning. MMODL / IJN: [id number] /
[2021-05-28] MEDS: ACETAMINOPHEN TAB 325 MG TAB PO PRN (16:33)
[2021-05-28] MEDS: ARTIFICIAL TEARS-HYPROMELLOSE DROPS 15 ML BTL BOTH EYES PRN ×2 (16:35→21:45)
[2021-05-29] MEDS: MAG HYDROX/AL HYDROX/SIMETH 30 ML CUP PO PRN (01:00)
[2021-05-29 06:39] VITALS: BP 114/58; PULSE 96; TEMP 97.5
[2021-05-29] MEDS: FAMOTIDINE 20 MG TAB PO SCH (09:31)
[2021-05-29] MEDS: SULFAMETHOX-TMP 800-160MG 1 EACH TAB PO SCH ×2 (09:31→20:55)
[2021-05-29] MEDS: NICOTINE 14MG/24HR PATCH TRANSDERM SCH (09:31)
--- NOTE | 2021-05-29 11:44 | PN ---
PROGRESS NOTE DATE OF SERVICE: 05/29/2021. CHIEF COMPLAINT: The patient had high stress. She had paranoid thinking. According to [facility], she had not been compliant with treatment and thus was referred to the hospital on a pick-up order. INTERVAL HISTORY: The patient has been doing fair. She has ups and downs in her mood. She will come out in the day area and will interact with others. She has been attending groups. It is noted that if some of her treatment issues are not addressed directly, she can seem to be in a fairly comfortable mood, though some of the issues are brought up in regards to the fact that she is under a court order and that she is required to take medications. She can easily become very distressed. She said she slept fair last night. Today, she has been up and doing about the same. She was very focused this morning when I talked to her on the issue of why she needs to take mood altering drugs when she has sabianist that she relies on for her mental health help. My understanding is at this point she is homeless, though she had been indicating some options for staying with family. She has not had any apparent side effects or problems with the start of Invega Sustenna. MENTAL STATUS EXAM: Today, the patient presented in a fairly intense manner. She gave fair eye contact at best. She was quite restless and agitated. She was angry about needing to take medications. She was distressed about her court status. She was not able to respond to questions in regard to immediate treatment or discharge planning issues. Her affect was intense, her mood depressed she was significantly distressed. She continues to show indications of paranoid thinking. She did not show any indications of thoughts of harm. She is oriented to circumstances and surrounding. ASSESSMENT: I will continue the current diagnosis and treatment plan. The patient received Invega Sustenna 234 mg as her initial dose on May 25. She will be due June 01 for her followup dose of 156 mg. I made a brief effort at explaining that to her and tried to see if she had any questions or concerns. She was not able to engage much in that conversation. My understanding is that we will be making efforts today for her to have contact with the courts for the option of agreeing to a stipulated order. If so we can then look at discharge as early as tomorrow. We will make efforts to work with the patient on discharge planning. MMODL / IJN: [id number] /
[2021-05-29] MEDS: ACETAMINOPHEN TAB 325 MG TAB PO PRN (16:21)
[2021-05-29] MEDS: ARTIFICIAL TEARS-HYPROMELLOSE DROPS 15 ML BTL BOTH EYES PRN ×2 (16:23→20:56)
[2021-05-30] MEDS: FAMOTIDINE 20 MG TAB PO SCH (09:01)
[2021-05-30] MEDS: NICOTINE 14MG/24HR PATCH TRANSDERM SCH (09:01)
[2021-05-30] MEDS: SULFAMETHOX-TMP 800-160MG 1 EACH TAB PO SCH (09:01)
[2021-05-30] MEDS: ACETAMINOPHEN TAB 325 MG TAB PO PRN (09:04)
[2021-05-30] MEDS: ARTIFICIAL TEARS-HYPROMELLOSE DROPS 15 ML BTL BOTH EYES PRN (09:06)
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
[2021-06-01] MEDS ORDERED: PALIPERIDONE IM 156 MG/ML SYG IM SCH (09:00)
== END 2021-05-30 14:08 | disposition home or self-care (01) | DRG 885 ==
LOC: EC 23:45 → 3MHU 05-19 04:24
PROVIDERS: ADMIT Psychiatry & Neurology Psychiatry; ATTEND Psychiatry & Neurology Psychiatry
DX: F20.81 Schizophreniform disorder (principal); F17.200 Nicotine dependence, unspecified, uncomplicated; F31.9 Bipolar disorder, unspecified; F41.9 Anxiety disorder, unspecified; Z59.00 Homelessness unspecified; Z83.3 Family history of diabetes mellitus; Z90.710 Acquired absence of both cervix and uterus; Z91.19 Patient's noncompliance with other medical treatment and regimen; Z20.822 Contact with and (suspected) exposure to COVID-19
CPT/HCPCS: 80306; 81001; 81025; 82075; 87635; 99285

== ENCOUNTER 2021-11-25 08:42 | Emergency (ER) | payer MEDICARE, OTHER ==
[2021-11-25 08:51] VITALS: BP 131/83; PULSE 57; RESP 18; TEMP 97.5
[2021-11-25] MEDS ORDERED: SODIUM CHLORIDE 0.9% 1,000 ML IV STA (09:15)
[2021-11-25] MEDS ORDERED: ONDANSETRON 4 MG/2 ML VIAL IVP STA ×2 (09:15→11:59)
[2021-11-25] MEDS ORDERED: MORPHINE SULFATE 4 MG/ML SYRINGE IV STA (09:15)
--- NOTE | 2021-11-25 09:18 | ED ---
General Adult HPI - General Chief complaint: Nausea/Vomiting/Diarrhea Stated complaint: nausea/vomiting Time Seen by Provider: 11/25/21 08:44 Source: EMS Mode of arrival: EMS Limitations: no limitations - History of Present Illness Initial comments: 41-year-old female with a past medical history of hysterectomy, cholecystectomy, salpingectomy after ectopic presents to the emergency room for abdominal pain. Patient reports she had abdominal pain starting yesterday morning. Patient states the pain is all over her abdomen and has difficulty localizing the pain. Patient also has had nausea and vomiting. States she is unable to keep down water. Patient denies any fevers or chills. Patient has no other complaints at this time including shortness of breath, chest pain, headache, or visual changes. - Related Data Previous Rx's Medication Instructions Recorded Artificial Tears-Hypromellose 1 drops BOTH EYES TID PRN #1 05/30/21 [Artificial Tear Drops] dropper Famotidine [Pepcid] 20 mg PO DAILY 30 Days tab 05/30/21 Nicotine 14Mg/24Hr Patch [Habitrol] 1 patch TRANSDERM DAILY 30 Days 05/30/21 patch Paliperidone IM [Invega Sustenna] 156 mg IM QMONTHLY #1 each 05/30/21 Sulfamethox-Tmp 800-160Mg [Bactrim 1 each PO BID 5 Days tab 05/30/21 DS 800-160 mg] Famotidine [Pepcid] 20 mg PO BID #14 tablet 11/25/21 Ondansetron Odt [Zofran Odt] 4 mg PO Q8HR PRN #14 tab 11/25/21 Allergies Allergy/AdvReac Type Severity Reaction Status Date / Time bupropion HCl AdvReac Confusion Verified 11/25/21 08:52 [From Wellbutrin] quetiapine fumarate AdvReac Confusion Verified 11/25/21 08:52 [From Seroquel] trazodone AdvReac Confusion Verified 11/25/21 08:52 Review of Systems ROS Statement: Those systems with pertinent positive or pertinent negative responses have been documented in the HPI. ROS Other: All systems not noted in ROS Statement are negative. Past Medical History Past Medical History: No Reported History Additional Past Medical History / Comment(s): Large tonsills-difficulty s wallowing at times, elevated heart rate, bilateral feet have fungus/ingrown toenails and cramps-pain with walking at times, R eye unclear vision since accidental nail glue went into that eye, UTI. History of Any Multi-Drug Resistant Organisms: None Reported Past Surgical History: Cholecystectomy, Hernia Repair, Hysterectomy, Tubal Ligation Additional Past Surgical History / Comment(s): Ventral hernia repair, ectopic /laparoscopic surgery to laparotomy, L salpingostomy for drainage of a cyst. Past Anesthesia/Blood Transfusion Reactions: Motion Sickness Past Psychological History: Anxiety, Bipolar, Depression Smoking Status: Never smoker Past Alcohol Use History: Occasional Past Drug Use History: None Reported - Past Family History Mother Family Medical History: Diabetes Mellitus, Pneumonia Additional Family Medical History / Comment(s): Mother of pneumonia/diabetes. Father Family Medical History: No Reported History Additional Family Medical History / Comment(s): Father is healthy General Exam Limitations: no limitations General appearance: alert, in no apparent distress Head exam: Present: atraumatic Eye exam: Present: normal appearance, PERRL, EOMI. Absent: scleral icterus, conjunctival injection ENT exam: Present: normal exam, mucous membranes moist Neck exam: Present: normal inspection, full ROM. Absent: tenderness Respiratory exam: Present: normal lung sounds bilaterally. Absent: respiratory distress, wheezes Cardiovascular Exam: Present: regular rate, normal rhythm, normal heart sounds GI/Abdominal exam: Present: soft, tenderness (epigastric and rlq area), normal bowel sounds. Absent: distended, guarding, rebound Neurological exam: Present: alert Course Vital Signs 11/25/21 08:45 Temperature 97.5 F L Pulse Rate 57 L Respiratory 18 Rate Blood Pressure 131/83 O2 Sat by Pulse 100 Oximetry Medical Decision Making - Medical Decision Making Vitals are stable. Patient is well-appearing. Patient does have some mild abdominal pain worse in the epigastric and right lower quadrant areas. CBC is unremarkable and CMP unremarkable. Urinalysis does show 2+ ketones likely secondary to dehydration. Cold that and strep were negative. CT abdomen and pelvis showed wall thickening involving the cecum and ascending colon as well as the transverse colon up to the splenic flexure felt to reflect nonspecific colitis. She does have a 3 cm left ovarian cyst however pain is on the right side. At this time patient's pain and nausea have improved although somewhat lingering. We will give her another course of medications. She will follow up with her doctor. She will return here for any worsening symptoms. - Lab Data Result diagrams: 11/25/21 09:20 11/25/21 10:24 Lab Results 11/25/21 11/25/21 11/25/21 Range/Units 09:20 09:20 09:20 WBC 10.5 (3.8-10.6) k/uL RBC 4.59 (3.80-5.40) m/uL Hgb 14.4 (11.4-16.0) gm/dL Hct 44.4 (34.0-46.0) % MCV 96.9 (80.0-100.0) fL MCH 31.4 (25.0-35.0) pg MCHC 32.4 (31.0-37.0) g/dL RDW 13.5 (11.5-15.5) % Plt Count 252 (150-450) k/uL MPV 8.4 Neutrophils % 77 % Lymphocytes % 17 % Monocytes % 3 % Eosinophils % 2 % Basophils % 1 % Neutrophils # 8.1 H (1.3-7.7) k/uL Lymphocytes # 1.8 (1.0-4.8) k/uL Monocytes # 0.3 (0-1.0) k/uL Eosinophils # 0.2 (0-0.7) k/uL Basophils # 0.1 (0-0.2) k/uL Sodium (137-145) mmol/L Potassium (3.5-5.1) mmol/L Chloride (98-107) mmol/L Carbon Dioxide (22-30) mmol/L Anion Gap mmol/L BUN (7-17) mg/dL Creatinine (0.52-1.04) mg/dL Est GFR (CKD-EPI)AfAm (>60 ml/min/1.73 sqM) Est GFR (CKD-EPI)NonAf (>60 ml/min/1.73 sqM) Glucose (74-99) mg/dL Plasma Lactic Acid Rory 2.3 H* (0.7-2.0) mmol/L Calcium (8.4-10.2) mg/dL Total Bilirubin (0.2-1.3) mg/dL AST (14-36) U/L ALT (4-34) U/L Alkaline Phosphatase (38-126) U/L Total Protein (6.3-8.2) g/dL Albumin (3.5-5.0) g/dL HCG, Qual Urine Color Yellow Urine Appearance Clear (Clear) Urine pH 6.5 (5.0-8.0) Ur Specific Alvin 1.050 H (1.001-1.035) Urine Protein Trace H (Negative) Urine Glucose (UA) Negative (Negative) Urine Ketones 2+ H (Negative) Urine Blood Negative (Negative) Urine Nitrite Negative (Negative) Urine Bilirubin Negative (Negative) Urine Urobilinogen <2.0 (<2.0) mg/dL Ur Leukocyte Esterase Negative (Negative) Coronavirus (PCR) (Not Detectd) Group A Strep Rapid (Negative) 11/25/21 11/25/21 11/25/21 Range/Units 09:20 09:20 09:20 WBC (3.8-10.6) k/uL RBC (3.80-5.40) m/uL Hgb (11.4-16.0) gm/dL Hct (34.0-46.0) % MCV (80.0-100.0) fL MCH (25.0-35.0) pg MCHC (31.0-37.0) g/dL RDW (11.5-15.5) % Plt Count (150-450) k/uL MPV Neutrophils % % Lymphocytes % % Monocytes % % Eosinophils % % Basophils % % Neutrophils # (1.3-7.7) k/uL Lymphocytes # (1.0-4.8) k/uL Monocytes # (0-1.0) k/uL Eosinophils # (0-0.7) k/uL Basophils # (0-0.2) k/uL Sodium (137-145) mmol/L Potassium (3.5-5.1) mmol/L Chloride (98-107) mmol/L Carbon Dioxide (22-30) mmol/L Anion Gap mmol/L BUN (7-17) mg/dL Creatinine (0.52-1.04) mg/dL Est GFR (CKD-EPI)AfAm (>60 ml/min/1.73 sqM) Est GFR (CKD-EPI)NonAf (>60 ml/min/1.73 sqM) Glucose (74-99) mg/dL Plasma Lactic Acid Rory (0.7-2.0) mmol/L Calcium (8.4-10.2) mg/dL Total Bilirubin (0.2-1.3) mg/dL AST (14-36) U/L ALT (4-34) U/L Alkaline Phosphatase (38-126) U/L Total Protein (6.3-8.2) g/dL Albumin (3.5-5.0) g/dL HCG, Qual Not Detected Urine Color Urine Appearance (Clear) Urine pH (5.0-8.0) Ur Specific Alvin (1.001-1.035) Urine Protein (Negative) Urine Glucose (UA) (Negative) Urine Ketones (Negative) Urine Blood (Negative) Urine Nitrite (Negative) Urine Bilirubin (Negative) Urine Urobilinogen (<2.0) mg/dL Ur Leukocyte Esterase (Negative) Coronavirus (PCR) Not Detected (Not Detectd) Group A Strep Rapid Negative (Negative) 11/25/21 Range/Units 10:24 WBC (3.8-10.6) k/uL RBC (3.80-5.40) m/uL Hgb (11.4-16.0) gm/dL Hct (34.0-46.0) % MCV (80.0-100.0) fL MCH (25.0-35.0) pg MCHC (31.0-37.0) g/dL RDW (11.5-15.5) % Plt Count (150-450) k/uL MPV Neutrophils % % Lymphocytes % % Monocytes % % Eosinophils % % Basophils % % Neutrophils # (1.3-7.7) k/uL Lymphocytes # (1.0-4.8) k/uL Monocytes # (0-1.0) k/uL Eosinophils # (0-0.7) k/uL Basophils # (0-0.2) k/uL Sodium 137 (137-145) mmol/L Potassium 4.7 (3.5-5.1) mmol/L Chloride 103 (98-107) mmol/L Carbon Dioxide 20 L (22-30) mmol/L Anion Gap 14 mmol/L BUN 12 (7-17) mg/dL Creatinine 0.68 (0.52-1.04) mg/dL Est GFR (CKD-EPI)AfAm >90 (>60 ml/min/1.73 sqM) Est GFR (CKD-EPI)NonAf >90 (>60 ml/min/1.73 sqM) Glucose 114 H (74-99) mg/dL Plasma Lactic Acid Rory (0.7-2.0) mmol/L Calcium 9.5 (8.4-10.2) mg/dL Total Bilirubin 0.9 (0.2-1.3) mg/dL AST 40 H (14-36) U/L ALT 17 (4-34) U/L Alkaline Phosphatase 72 (38-126) U/L Total Protein 8.7 H (6.3-8.2) g/dL Albumin 5.2 H (3.5-5.0) g/dL HCG, Qual Urine Color Urine Appearance (Clear) Urine pH (5.0-8.0) Ur Specific Alvin (1.001-1.035) Urine Protein (Negative) Urine Glucose (UA) (Negative) Urine Ketones (Negative) Urine Blood (Negative) Urine Nitrite (Negative) Urine Bilirubin (Negative) Urine Urobilinogen (<2.0) mg/dL Ur Leukocyte Esterase (Negative) Coronavirus (PCR) (Not Detectd) Group A Strep Rapid (Negative) Disposition Clinical Impression: Abdominal pain Disposition: HOME SELF-CARE Condition: Good Instructions (If sedation given, give patient instructions): Acute Nausea and Vomiting (ED) Additional Instructions: Take medications as directed. Follow-up with your doctor. Return to the emergency room for any worsening symptoms. Prescriptions: Famotidine [Pepcid] 20 mg PO BID #14 tablet Ondansetron Odt [Zofran Odt] 4 mg PO Q8HR PRN #14 tab PRN Reason: Nausea Is patient prescribed a controlled substance at d/c from ED?: No Referrals: Lexx Morrison MD [Primary Care Provider] - 1-2 days Time of Disposition: 11:59
[2021-11-25 09:33] LABS: Basophils # (A) 0.1 k/uL (0-0.2); Basophils % (A) 1 %; Eosinophils # (A) 0.2 k/uL (0-0.7); Eosinophils % (A) 2 %; HCT 44.4 % (34.0-46.0); HGB 14.4 gm/dL (11.4-16.0); Lymphocytes # (A) 1.8 k/uL (1.0-4.8); Lymphocytes % (A) 17 %; MCH 31.4 pg (25.0-35.0); MCHC 32.4 g/dL (31.0-37.0); MCV 96.9 fL (80.0-100.0); Mean Platelet Volume 8.4; Monocytes # (A) 0.3 k/uL (0-1.0); Monocytes % (A) 3 %; Neutrophils # (A) 8.1 k/uL (1.3-7.7); Neutrophils % (A) 77 %; Platelet Count 252 k/uL (150-450); RBC 4.59 m/uL (3.80-5.40); RDW 13.5 % (11.5-15.5); WBC 10.5 k/uL (3.8-10.6)
--- NOTE | 2021-11-25 10:56 | CT ---
EXAMINATION TYPE: CT abdomen pelvis w con DATE OF EXAM: 11/25/2021 COMPARISON: 03/15/2019 HISTORY: Abdomen pain CT DLP: 1055 mGycm CONTRAST: CT scan of the abdomen and pelvis is performed without Oral Contrast and with IV Contrast, patient in jected with 100 mL of Isovue 300. FINDINGS: LUNG BASES-: No visible nodule. No infiltrate. Small hiatal hernia. LIVER/GB: The gallbladder is surgically absent. Subcentimeter cystic lesion at the dome of the liver. Biliary tree is of normal caliber. PANCREAS: No inflammation. No distinct mass. SPLEEN: No splenic enlargement. No lesion seen. ADRENALS: No nodule. No thickening. KIDNEYS/BLADDER: No hydronephrosis. No nephrolithiasis. No distinct renal mass. Urinary bladder g rossly unremarkable. BOWEL: Normal appendix. There is wall thickening involving the cecum and ascending colon as well as t he transverse colon up to the splenic flexure felt to reflect nonspecific colitis. Correlate clinical ly. GENITAL ORGANS: There appears to be a left ovarian cyst measuring 3 cm. There appear to be hysterecto my changes. Right adnexa is unremarkable. LYMPH NODES: No greater than 1cm abdominal or pelvic lymph nodes are appreciated. AORTA: No significant abnormality. OSSEOUS STRUCTURES: No significant abnormality is seen. OTHER: No significant additional abnormality is seen. IMPRESSION: 1. Correlate for nonspecific colitis. 2. Left ovarian cyst.
[2021-11-25 11:11] LABS: ALT 17 U/L (4-34); AST 40 U/L (14-36); African American GFR (CKD) >90 (>60 ml/min/1.73 sqM); Albumin 5.2 g/dL (3.5-5.0); Alkaline Phosphatase 72 U/L (38-126); Anion Gap 14 mmol/L; Blood Urea Nitrogen 12 mg/dL (7-17); Calcium 9.5 mg/dL (8.4-10.2); Carbon Dioxide 20 mmol/L (22-30); Chloride 103 mmol/L (98-107); Glucose 114 mg/dL (74-99); Non-African American GFR(CKD) >90 (>60 ml/min/1.73 sqM); Potassium 4.7 mmol/L (3.5-5.1); Sodium 137 mmol/L (137-145); Total Bilirubin 0.9 mg/dL (0.2-1.3); Total Protein 8.7 g/dL (6.3-8.2)
[2021-11-25 11:23] LABS: Appearance,Urine Clear (Clear); Bilirubin,Urine Negative (Negative); Blood,Urine Negative (Negative); Color,Urine Yellow; Glucose,Urine (UA) Negative (Negative); Ketones,Urine 2+ (Negative); Leukocyte Esterase,Urine Negative (Negative); Nitrite,Urine Negative (Negative); PH, Urine 6.5 (5.0-8.0); Protein,Urine Trace (Negative); Urobilinogen,Urine <2.0 mg/dL (<2.0)
[2021-11-25] MEDS ORDERED: FAMOTIDINE 20 MG/2 ML VIAL IV STA (11:52)
== END 2021-11-25 12:24 | disposition home or self-care (01) ==
LOC: EC 08:42
DX: R10.13 Epigastric pain (principal); R10.31 Right lower quadrant pain; Z20.822 Contact with and (suspected) exposure to COVID-19; F31.9 Bipolar disorder, unspecified; F41.9 Anxiety disorder, unspecified; Z79.899 Other long term (current) drug therapy
CPT/HCPCS: 36415; 80053; 83605; 85025; 81003; 84703; 87081; 87430; 87635; 74177; 99284; 96374; 96375 ×2; 96376; 96361 ×3; J2270; J2405; Q9967